=== PATIENT | male | born 1965 ===

== ENCOUNTER 2017-02-17 18:12 | Emergency (ER) | payer MEDICAID, OTHER ==
[2017-02-17 18:29] VITALS: TEMP 97.6
[2017-02-17] MEDS ORDERED: Naloxone 0.4 mg/ml Inj (Adult) IV ONE (18:38)
[2017-02-17] MEDS ORDERED: Naloxone 0.4 mg/ml Inj (Adult) ONE (18:44)
[2017-02-17 18:49] LABS: BASO % 0.5 % (0.0-2.0); EOS # 0.1 K/uL (0.0-0.7); EOS % 1.6 % (0.0-4.0); HEMATOCRIT 36.9 % (35.0-51.0); LYMPH # 1.1 K/uL (1.0-4.3); LYMPH % 17.7 % (20.0-40.0); MEAN CORPUSCULAR HEMOGLOBIN 27.8 pg (27.0-31.0); MEAN CORPUSCULAR HGB CONC 32.6 g/dL (33.0-37.0); MEAN PLATELET VOLUME 8.8 fL (7.2-11.7); MONO # 0.5 K/uL (0.0-0.8); MONO % 7.7 % (0.0-10.0); RED CELL DISTRIBUTION WIDTH 16.7 % (11.5-14.5); WHITE BLOOD COUNT 6.3 K/uL (4.8-10.8)
[2017-02-17 18:54] LABS: CHLORIDE 107 mmol/L (98-107)
[2017-02-17 18:55] LABS: SODIUM 144 mmol/L (132-148)
[2017-02-17 18:56] LABS: POTASSIUM 5.1 mmol/L (3.6-5.2)
[2017-02-17 18:58] LABS: ALB/GLOB RATIO 0.8 (1.0-2.1); ALKALINE PHOSPHATASE 137 U/L (38-126); ALT/SGPT 80 U/L (21-72); AST/SGOT 124 U/L (17-59); BILIRUBIN,TOTAL 2.2 mg/dL (0.2-1.3); BLOOD UREA NITROGEN 13 mg/dL (9-20); CARBON DIOXIDE 22 mmol/L (22-30); GFR AFRICAN-AMERICAN > 60; TOTAL PROTEIN 7.3 g/dL (6.3-8.3)
[2017-02-17 18:59] LABS: ALCOHOL SERUM 171 mg/dl (0-10); CALCIUM 8.3 mg/dl (8.6-10.4); GLUCOSE,RANDOM 118 mg/dL (75-110)
[2017-02-17 19:18] LABS: MEAN CELL VOLUME 85.2 fL (80.0-94.0)
--- NOTE | 2017-02-17 19:31 | C.PDOC ---
History Of Present Illness 51 year old patient is brought to the ED by ambulance for overdosing on heroin in the field. Patient was given Narcan and his symptoms are improving. Patient denies suicidal ideation, homicidal ideation, or any other complaints at this time. Time Seen by Provider: 02/17/17 18:38 Chief Complaint (Nursing): Substance Abuse History Per: Patient, EMS History/Exam Limitations: other Onset/Duration Of Symptoms: Mins (prior to arrival) Current Symptoms Are (Timing): Still Present Suicide/Self Injury Attempted (Context): None Modifying Factor(s): Other (heroin) Severity: None Pain Scale Rating Of: 0 Recent travel outside of the [place]: No Additional History Per: EMS Past Medical History Reviewed: Historical Data, Nursing Documentation, Vital Signs Vital Signs: Last Vital Signs Temp 97.6 F 02/17/17 18:24 Pulse 104 H 02/17/17 20:00 Resp 14 02/17/17 20:00 BP 125/86 02/17/17 20:00 Pulse Ox 96 02/17/17 20:28 - Medical History PMH: Bipolar Disorder, Depression, Kidney Stones, Schizophrenia - [facility] Procedures DETOXIFICATION SERVICES FOR SUBSTANCE ABUSE TREATMENT (01/25/16) INJECT/INFUSE NEC (02/20/14) Family History: States: Unknown Family Hx - Social History Hx Tobacco Use: Yes Hx Alcohol Use: Yes Hx Substance Use: Yes (Snorts Heroin) - Immunization History Hx Influenza Vaccination: No Review Of Systems Except As Marked, All Systems Reviewed And Found Negative. Psych: Positive for: Other (overdose). Negative for: Suicidal ideation Physical Exam - Physical Exam Appears: Non-toxic, No Acute Distress, Other (lethargic, combative) Skin: Warm, Dry Head: Atraumatic, Normacephalic Eye(s): bilateral: Other (pinpoint pupils) Oral Mucosa: Moist Neck: Normal ROM, Supple Chest: Symmetrical Cardiovascular: Rhythm Regular Respiratory: No Accessory Muscle Use Gastrointestinal/Abdominal: Soft, No Tenderness Back: Normal Inspection Extremity: Normal ROM, Other (-like left hand) Gait: Steady ED Course And Treatment - Laboratory Results Result Diagrams: 02/17/17 18:43 02/17/17 18:43 Lab Interpretation: Abnormal (ETOH 171 H) ECG: Interpreted By Me, Viewed By Me ECG Rhythm: Sinus Tachycardia Rate From EC (bpm) O2 Sat by Pulse Oximetry: 96 (room air) Pulse Ox Interpretation: Normal - Radiology CXR: Interpreted by Me CXR Interpretation: Yes: No Acute Disease Progress Note: Plan: -EKG. -Labs. -Chest x-ray. -Narcan. Pinpoint pupils resolved with Narcan. 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 at d/c pt unwilling or unable to provide urine sample. Disposition Doctor Will See Patient In The: Office Counseled Patient/Family Regarding: Studies Performed, Diagnosis - Disposition Disposition: HOME/ ROUTINE Disposition Time: 20:34 Condition: GOOD - Clinical Impression Clinical Impression: Alcohol abuse, Opiate abuse, episodic - Scribe Statement The provider has reviewed the documentation as recorded by the Scribe Dania Cates Provider Attestation: All medical record entries made by the Ladiibmacario were at my direction and personally dictated by me. I have reviewed the chart and agree that the record accurately reflects my personal performance of the history, physical exam, medical decision making, and the department course for this patient. I have also personally directed, reviewed, and agree with the discharge instructions and disposition.
[2017-02-17] MEDS ORDERED: Sodium Chloride 0.9% 1,000 ML IV ONE (20:11)
[2017-02-17] MEDS ORDERED: Sodium Chloride 0.9% 1,000 ML ONE (20:12)
[2017-02-17 20:19] VITALS: O2SAT 96
[2017-02-17 20:50] VITALS: BP 136/86; PULSE 105; RESP 18
--- NOTE | 2017-02-18 08:24 | RAD ---
PROCEDURE: CHEST RADIOGRAPH, 1 VIEW portable semi erect study 19:03. HISTORY: SOB COMPARISON: 02/25/2016. FINDINGS: LUNGS: Pulmonary vascular congestion without focal infiltrates. PLEURA: No pneumothorax or pleural fluid seen. CARDIOVASCULAR: Cardiomegaly/mild CHF. OSSEOUS STRUCTURES: No significant abnormalities. VISUALIZED UPPER ABDOMEN: Normal. OTHER FINDINGS: None. IMPRESSION: Acute CHF a new finding compared to the prior study.
--- NOTE | 2017-02-24 13:37 | CARD ---
APPROVED REPORT EKG Measurement Heart [id number] 130P30 [id number] <Conclusion> Sinus tachycardia Possible Anterior infarct, age undetermined Abnormal ECG
== END 2017-02-17 21:08 | disposition home or self-care (01) ==
LOC: C.ER 18:12
DX: F11.10 Opioid abuse, uncomplicated (principal); F10.10 Alcohol abuse, uncomplicated; Y90.6 Blood alcohol level of 120-199 mg/100 ml
CPT/HCPCS: 71010; 80053; 80320; 84484; 85025; 96360; 99285; J2310; J7040

== ENCOUNTER 2017-02-21 10:34 | Emergency (ER) | payer MEDICAID, OTHER ==
--- NOTE | 2017-02-21 12:12 | C.PDOC ---
History Of Present Illness 51 y/o male presents to the ED with complains of sore throat. Pt was found unresponsive by EMS in the street, given narcan and patient woke up. Pt denies drug use. Pt seen 2 days ago with similar story; seen yesterday at [facility] for sore throat, strep test negative. Pt also reports SOB, nausea and vomiting earlier, none now. Denies headache, chest pain or any other complaints. Chief Complaint (Nursing): Substance Abuse History Per: Patient History/Exam Limitations: no limitations Onset/Duration Of Symptoms: Days Current Symptoms Are (Timing): Still Present Severity: Mild Involuntary Hold By: None Recent travel outside of the [place]: No Past Medical History Reviewed: Historical Data, Nursing Documentation, Vital Signs Vital Signs: Last Vital Signs Temp 98.1 F 02/21/17 14:31 Pulse 92 H 02/21/17 14:31 Resp 18 02/21/17 14:31 BP 125/74 02/21/17 14:31 Pulse Ox 96 02/21/17 15:11 - Medical History PMH: Bipolar Disorder, Depression, Kidney Stones, Chronic Kidney Disease, Schizophrenia - [facility] Procedures DETOXIFICATION SERVICES FOR SUBSTANCE ABUSE TREATMENT (01/25/16) INJECT/INFUSE NEC (02/20/14) Family History: States: Unknown Family Hx - Social History Hx Tobacco Use: Yes Hx Alcohol Use: Yes Hx Substance Use: Yes - Immunization History Hx Tetanus Toxoid Vaccination: No Hx Influenza Vaccination: No Hx Pneumococcal Vaccination: No Review Of Systems Except As Marked, All Systems Reviewed And Found Negative. Constitutional: Negative for: Fever ENT: Positive for: Throat Pain Cardiovascular: Negative for: Chest Pain Respiratory: Positive for: Shortness of Breath (resolved) Gastrointestinal: Positive for: Nausea, Vomiting (resolved) Neurological: Negative for: Headache Physical Exam - Physical Exam Appears: Non-toxic, No Acute Distress Skin: Warm, Dry, No Rash Head: Atraumatic, Normacephalic Oral Mucosa: Moist Throat: Normal, No Erythema Neck: Normal, Normal ROM, Supple Chest: Symmetrical, No Tenderness Cardiovascular: Rhythm Regular, No Murmur Respiratory: Normal Breath Sounds, No Rales, No Rhonchi, No Wheezing Gastrointestinal/Abdominal: Bowel Sounds, Soft, No Tenderness, Other (obese) Extremity: Other (Left upper extremity deformity) Extremity: Bilateral: Atraumatic Neurological/Psych: Oriented x3, Normal Speech ED Course And Treatment - Laboratory Results Result Diagrams: 02/21/17 12:40 02/21/17 12:40 O2 Sat by Pulse Oximetry: 96 (room air) Pulse Ox Interpretation: Normal Medical Decision Making Medical Decision Making: Patient awake, alert, asking for food. Disposition Counseled Patient/Family Regarding: Studies Performed, Diagnosis, Need For Followup - Disposition Disposition: HOME/ ROUTINE Disposition Time: 17:14 Condition: IMPROVED Instructions: Opioid Dependence (ED) Forms: Gen Discharge Inst Algerian - POA Present On Arrival: None - Clinical Impression Clinical Impression: Drug dependence - Scribe Statement The provider has reviewed the documentation as recorded by the Delia Banks Provider Attestation: All medical record entries made by the Delia were at my direction and personally dictated by me. I have reviewed the chart and agree that the record accurately reflects my personal performance of the history, physical exam, medical decision making, and the department course for this patient. I have also personally directed, reviewed, and agree with the discharge instructions and disposition.
--- NOTE | 2017-02-21 12:34 | RAD ---
HISTORY: Detox/Psy COMPARISON: Chest x-ray performed 02/17/17 TECHNIQUE: Chest, one view. FINDINGS: Examination limited by habitus and hypoinflation. LUNGS: Mild pulmonary venous congestion. Please note that chest x-ray has limited sensitivity for the detection of pulmonary masses. PLEURA: No significant pleural effusion identified. No definite pneumothorax . CARDIOVASCULAR: Borderline cardiomegaly. OSSEOUS STRUCTURES: Degenerative changes. VISUALIZED UPPER ABDOMEN: Unremarkable. OTHER FINDINGS: None. IMPRESSION: Mild pulmonary venous congestion . Borderline cardiomegaly.
[2017-02-21 12:45] LABS: BASO % 0.2 % (0.0-2.0); EOS % 0.1 % (0.0-4.0); HEMATOCRIT 35.4 % (35.0-51.0); LYMPH # 0.8 K/uL (1.0-4.3); MEAN CELL VOLUME 85.8 fL (80.0-94.0); MEAN CORPUSCULAR HEMOGLOBIN 27.5 pg (27.0-31.0); MEAN PLATELET VOLUME 8.3 fL (7.2-11.7); MONO # 1.2 K/uL (0.0-0.8); MONO % 8.7 % (0.0-10.0); NRBC % 0.1 % (0.0-2.0); PLATELET COUNT 74 K/uL (130-400); RED CELL DISTRIBUTION WIDTH 16.6 % (11.5-14.5); WHITE BLOOD COUNT 13.6 K/uL (4.8-10.8)
[2017-02-21 12:55] LABS: CHLORIDE 100 mmol/L (98-107); POTASSIUM 5.5 mmol/L (3.6-5.2); SODIUM 133 mmol/L (132-148)
[2017-02-21 12:57] LABS: GFR AFRICAN-AMERICAN 55
[2017-02-21 12:58] LABS: ALB/GLOB RATIO 0.8 (1.0-2.1); ALKALINE PHOSPHATASE 122 U/L (38-126); ALT/SGPT 105 U/L (21-72); AST/SGOT 178 U/L (17-59); BILIRUBIN,TOTAL 2.5 mg/dL (0.2-1.3); BLOOD UREA NITROGEN 29 mg/dL (9-20); CALCIUM 7.9 mg/dl (8.6-10.4); CARBON DIOXIDE 26 mmol/L (22-30); GLUCOSE,RANDOM 120 mg/dL (75-110); TOTAL PROTEIN 7.3 g/dL (6.3-8.3)
[2017-02-21 12:59] LABS: ALCOHOL SERUM < 10 mg/dl (0-10)
[2017-02-21 13:14] LABS: NEUTROPHIL 89 % (50-75); TOTAL CELLS COUNTED 100
[2017-02-21 14:33] VITALS: RESP 18
[2017-02-21 15:01] LABS: RBC URINE 1 /hpf (0-3); URINE BACTERIA RARE (<OCC); URINE BILIRUBIN NEGATIVE (NEGATIVE); URINE BLOOD NEGATIVE (NEGATIVE); URINE COLOR Amber (YELLOW); URINE GLUCOSE (UA) NORMAL (Normal); URINE KETONE TRACE mg/dL (NEGATIVE); URINE LEUKOCYTE ESTERASE NEG Leu/uL (Negative); URINE PROTEIN 1+ mg/dL (NEGATIVE); WBC URINE 1 /hpf (0-5)
[2017-02-21 18:14] VITALS: BP 126/72; PULSE 88; TEMP 98; O2SAT 98
--- NOTE | 2017-02-24 13:01 | CARD ---
APPROVED REPORT EKG Measurement Heart [id number] 140P17 [id number] <Conclusion> Normal sinus rhythm Normal ECG
== END 2017-02-21 17:30 | disposition home or self-care (01) ==
LOC: C.ER 10:34
DX: F19.20 Other psychoactive substance dependence, uncomplicated (principal)

== ENCOUNTER 2017-02-26 21:18 | Emergency (ER) | payer MEDICAID ==
--- NOTE | 2017-02-26 22:32 | C.PDOC ---
History Of Present Illness COUGH, SORE THROAT, LOST VOICE X 3 WEEKS. NO FEVER. MULT PRIOR ER VISITS FOR SAME. HO DRUG OVERDOSE. DENIES OTHER ASSOC SX EXAM +LARYNGITIS NO ACUTE INTOX LUNGS BRONCHIAL SOUNDS NO RETRACTION MDM PT REQUESTING NARCOTIC DETOX. LAST USE EXTRUDER. NO BED AVAIL. OUTPT INFO GIVEN Time Seen by Provider: 02/26/17 22:06 Chief Complaint (Nursing): Cough, Cold, Congestion History Per: Patient History/Exam Limitations: no limitations Onset/Duration Of Symptoms: Other (3 WEEKS) Current Symptoms Are (Timing): Still Present Location Of Pain: Throat Sick Contacts (Context): None Associated Symptoms: Sore Throat, Cough, Other (LOST VOICE). denies: Fever, Chills, Neck Pain, Vomiting Ear Symptoms: Bilateral: None Recent travel outside of the [place]: No Past Medical History Reviewed: Historical Data, Nursing Documentation, Vital Signs Vital Signs: Last Vital Signs Temp 98.5 F 02/26/17 22:41 Pulse 98 H 02/26/17 22:41 Resp 20 02/26/17 22:41 BP 130/74 02/26/17 22:41 Pulse Ox 95 02/26/17 22:41 - Medical History PMH: Bipolar Disorder, Depression, Kidney Stones, Chronic Kidney Disease, Schizophrenia - [facility] Procedures DETOXIFICATION SERVICES FOR SUBSTANCE ABUSE TREATMENT (01/25/16) INJECT/INFUSE NEC (02/20/14) Family History: States: Unknown Family Hx - Social History Hx Tobacco Use: Yes Hx Alcohol Use: Yes Hx Substance Use: Yes - Immunization History Hx Tetanus Toxoid Vaccination: No Hx Influenza Vaccination: No Hx Pneumococcal Vaccination: No Review Of Systems Except As Marked, All Systems Reviewed And Found Negative. Constitutional: Negative for: Fever, Chills ENT: Positive for: Throat Pain, Other (LOST VOICE). Negative for: Nose Discharge, Nose Congestion Cardiovascular: Negative for: Chest Pain Respiratory: Positive for: Cough. Negative for: Shortness of Breath Gastrointestinal: Negative for: Nausea, Vomiting Skin: Negative for: Rash Neurological: Negative for: Headache, Dizziness Physical Exam - Physical Exam Appears: Non-toxic, Other (+LARYNGITIS, NO ACUTE INTOX) Skin: Warm, Dry, No Rash Head: Atraumatic, Normacephalic Eye(s): bilateral: Normal Inspection, PERRL, EOMI Ear(s): Bilateral: Normal Oral Mucosa: Moist Throat: Normal, No Erythema, No Exudate Neck: Supple Chest: Symmetrical Cardiovascular: Rhythm Regular, No Murmur Respiratory: No Accessory Muscle Use, No Rales, No Rhonchi, No Wheezing, Other ( (+) BRONCHIAL SOUNDS) Gastrointestinal/Abdominal: Soft, No Tenderness, No Guarding, No Rebound Back: Normal Inspection Extremity: Normal ROM, Capillary Refill (< 2 SEC. ) Neurological/Psych: Oriented x3, Normal Speech, Normal Cognition ED Course And Treatment O2 Sat by Pulse Oximetry: 94 (RA) Pulse Ox Interpretation: Normal - Radiology CXR: Interpreted by Me CXR Interpretation: Yes: Infiltrates Medical Decision Making Medical Decision Making: PT REQUESTING NARCOTIC DETOX. LAST USE EXTRUDER. NO BED AVAIL. OUTPT INFO GIVEN Disposition Counseled Patient/Family Regarding: Studies Performed, Diagnosis, Need For Followup, Rx Given - Disposition Referrals: [facility] [Outside] [facility] [Outside] Disposition: HOME/ ROUTINE Disposition Time: 22:31 Condition: GOOD Prescriptions: Azithromycin [Zithromax] 250 mg PO DAILY #6 tab Instructions: Laryngitis (ED), Narcotic Abuse (ED), Acute Bronchitis (ED) - Clinical Impression Clinical Impression: Chronic sore throat, Laryngitis, Narcotic abuse, Bronchitis - Scribe Statement The provider has reviewed the documentation as recorded by the Delia Wei Provider Scribe Attestation: All medical record entries made by the Scribe were at my direction and personally dictated by me. I have reviewed the chart and agree that the record accurately reflects my personal performance of the history, physical exam, medical decision making, and the department course for this patient. I have also personally directed, reviewed, and agree with the discharge instructions and disposition.
[2017-02-26 22:42] VITALS: BP 130/74; PULSE 98; RESP 20; TEMP 98.5
[2017-02-26 23:57] VITALS: O2SAT 94
--- NOTE | 2017-02-27 09:34 | RAD ---
HISTORY: COUGH FEVER COMPARISON: 02/21/2017 TECHNIQUE: Chest PA and lateral FINDINGS: LUNGS: Probable linear atelectasis right lower lobe. Poor inspiratory effort and low lung volumes with bronchovascular crowding. No infiltrate. PLEURA: No significant pleural effusion identified. No pneumothorax apparent. CARDIOVASCULAR: Normal. OSSEOUS STRUCTURES: No significant abnormalities. VISUALIZED UPPER ABDOMEN: Normal. OTHER FINDINGS: None. IMPRESSION: Right lower lobe subsegmental atelectasis.
== END 2017-02-26 22:41 | disposition home or self-care (01) ==
LOC: C.ER 21:18
DX: J04.0 Acute laryngitis (principal); J31.2 Chronic pharyngitis; J40 Bronchitis, not specified as acute or chronic; F19.10 Other psychoactive substance abuse, uncomplicated

== ENCOUNTER 2017-04-07 04:59 | Emergency (ER) | payer MEDICAID ==
--- NOTE | 2017-04-07 06:10 | C.PDOC ---
History Of Present Illness 52 y/o male presents to ED with c/o bilateral leg swelling. Patient reports past history of leg swelling and that he was given medication during hospital admission 2 weeks ago "which made him pee a lot" and swelling improve. Pt notes that swelling worsened since discharge, with redness. Denies fevers. Notes he has not been taking his chronic medication. Denies trauma. No SOB. Time Seen by Provider: 04/07/17 05:31 Chief Complaint (Nursing): Lower Extremity Problem/Injury History Per: Patient History/Exam Limitations: no limitations Onset/Duration Of Symptoms: Days Current Symptoms Are (Timing): Worse Recent travel outside of the [place]: No Past Medical History Reviewed: Historical Data, Nursing Documentation, Vital Signs Vital Signs: Last Vital Signs Temp 97.9 F 04/07/17 05:01 Pulse 103 H 04/07/17 05:01 Resp 20 04/07/17 05:01 BP 117/70 04/07/17 05:01 Pulse Ox 95 04/07/17 06:10 - Medical History PMH: Asthma, Bipolar Disorder, Depression, Kidney Stones, Chronic Kidney Disease , Schizophrenia - [facility] Procedures DETOXIFICATION SERVICES FOR SUBSTANCE ABUSE TREATMENT (01/25/16) INJECT/INFUSE NEC (02/20/14) INSPECTION OF LARYNX, ENDO (03/23/17) Family History: States: Unknown Family Hx - Social History Hx Tobacco Use: Yes Hx Alcohol Use: Yes (admits to drinking last night) Hx Substance Use: Yes (admits to heroin used last night) - Immunization History Hx Tetanus Toxoid Vaccination: No Hx Influenza Vaccination: No Hx Pneumococcal Vaccination: No Review Of Systems Cardiovascular: Positive for: Edema (bilateral lower extremities). Negative for : Chest Pain, Palpitations Respiratory: Negative for: Cough, Shortness of Breath Gastrointestinal: Negative for: Nausea, Vomiting Musculoskeletal: Positive for: Leg Pain (bilateral) Physical Exam - Physical Exam Appears: Non-toxic, No Acute Distress (sleeping on initial exam) Skin: Warm, Dry Head: Atraumatic, Normacephalic Eye(s): bilateral: Normal Inspection, EOMI Nose: Normal Oral Mucosa: Moist Chest: Symmetrical Cardiovascular: Rhythm Regular Respiratory: No Rales, Rhonchi, No Wheezing Gastrointestinal/Abdominal: Soft, No Tenderness, No Guarding, No Rebound Back: Normal Inspection Extremity: Normal ROM, Pedal Edema (pedal edema R > L, (+) tenderness, (+) erythema ), Deformity (left upper extremity, chronic) Pulses: Left Dorsalis Pedis: Normal, Right Dorsalis Pedis: Normal Neurological/Psych: Oriented x3, Normal Speech, Normal Cognition, Normal Motor, Normal Sensation ED Course And Treatment O2 Sat by Pulse Oximetry: 95 (RA) Pulse Ox Interpretation: Normal Progress Note: Labs ordered and reviewed. Previous visits reviewed. Doppler from 03/23/17 negative. Case endorsed to Fernando Bowman pending labs and dispostion. Disposition - Disposition Disposition Time: 06:44 Condition: STABLE - Clinical Impression Clinical Impression: Pedal edema - PA / HOUSING CASE MANAGER / Resident Statement MD/DO has reviewed & agrees with the documentation as recorded. - Scribe Statement The provider has reviewed the documentation as recorded by the Scribmacario Wei All medical record entries made by the Ladiibmacario were at my direction and personally dictated by me. I have reviewed the chart and agree that the record accurately reflects my personal performance of the history, physical exam, medical decision making, and the department course for this patient. I have also personally directed, reviewed, and agree with the discharge instructions and disposition.
[2017-04-07 06:54] LABS: BASO # 0.1 K/uL (0.0-0.2); BASO % 1.3 % (0.0-2.0); EOS # 0.1 K/uL (0.0-0.7); HEMATOCRIT 30.8 % (35.0-51.0); LYMPH # 0.8 K/uL (1.0-4.3); LYMPH % 18.9 % (20.0-40.0); MEAN CORPUSCULAR HEMOGLOBIN 26.9 pg (27.0-31.0); MEAN PLATELET VOLUME 8.6 fL (7.2-11.7); MONO # 0.4 K/uL (0.0-0.8); MONO % 8.8 % (0.0-10.0); NRBC % 0.2 % (0.0-2.0); RED CELL DISTRIBUTION WIDTH 18.2 % (11.5-14.5); WHITE BLOOD COUNT 4.4 K/uL (4.8-10.8)
[2017-04-07 06:55] VITALS: TEMP 97.6
[2017-04-07 07:12] VITALS: BP 111/70; PULSE 91; RESP 18; O2SAT 94
[2017-04-07 07:21] LABS: SODIUM 141 mmol/L (132-148)
[2017-04-07 07:23] LABS: CARBON DIOXIDE 21 mmol/L (22-30); GFR AFRICAN-AMERICAN > 60; TOTAL PROTEIN 6.6 g/dL (6.3-8.3)
[2017-04-07 07:24] LABS: BLOOD UREA NITROGEN 16 mg/dL (9-20); CALCIUM 7.8 mg/dl (8.6-10.4); GLUCOSE,RANDOM 79 mg/dL (75-110)
[2017-04-07 07:32] LABS: CHLORIDE 111 mmol/L (98-107)
[2017-04-07 07:33] LABS: POTASSIUM 3.9 mmol/L (3.6-5.2)
[2017-04-07 07:35] LABS: ALB/GLOB RATIO 0.6 (1.0-2.1); ALKALINE PHOSPHATASE 127 U/L (38-126); ALT/SGPT 55 U/L (21-72); AST/SGOT 114 U/L (17-59); BILIRUBIN,TOTAL 1.5 mg/dL (0.2-1.3)
== END 2017-04-07 08:54 | disposition home or self-care (01) ==
LOC: C.ER 04:59
DX: R60.9 Edema, unspecified (principal); N18.9 Chronic kidney disease, unspecified
CPT/HCPCS: 80053; 83880; 85025; 96374; 99285; J1940

== ENCOUNTER 2017-04-15 04:08 | Emergency (ER) | payer MEDICAID ==
[2017-04-15 04:18] VITALS: BP 111/66; TEMP 98.1
[2017-04-15 04:33] VITALS: RESP 24; O2SAT 97
[2017-04-15 04:35] VITALS: PULSE 90
--- NOTE | 2017-04-15 04:53 | C.PDOC ---
History Of Present Illness 52 year old male presents to the ED looking for a place to stay. Patient is well known to this ED, he is a homeless alcoholic and heroine abuser with chronic right leg pain. He admits to heroin and alcohol abuse today. Patient denies any physical complaints at this time. Time Seen by Provider: 04/15/17 04:36 Chief Complaint (Nursing): Shortness Of Breath History Per: Patient History/Exam Limitations: no limitations Onset/Duration Of Symptoms: Hrs Current Symptoms Are (Timing): Still Present Severity: None Pain Scale Rating Of: 0 Associated Symptoms: denies: Fever, Chills Reports Recently: Seen In ED Recent travel outside of the [place]: No Additional History Per: Prior Records Past Medical History Reviewed: Historical Data, Nursing Documentation, Vital Signs Vital Signs: Last Vital Signs Temp 98.1 F 04/15/17 04:15 Pulse 90 04/15/17 04:33 Resp 24 04/15/17 04:29 BP 111/66 04/15/17 04:33 Pulse Ox 97 04/15/17 04:53 - Medical History PMH: Asthma, Bipolar Disorder, COPD, Depression, Hepatitis ((+)Hep C), Kidney Stones, Chronic Kidney Disease, Schizophrenia - [facility] Procedures DETOXIFICATION SERVICES FOR SUBSTANCE ABUSE TREATMENT (01/25/16) INJECT/INFUSE NEC (02/20/14) INSPECTION OF LARYNX, ENDO (03/23/17) Family History: States: Unknown Family Hx - Social History Hx Tobacco Use: Yes Hx Alcohol Use: Yes (admits to drinking last night) Hx Substance Use: Yes (admits to heroin used last night) - Immunization History Hx Tetanus Toxoid Vaccination: No Hx Influenza Vaccination: No Hx Pneumococcal Vaccination: No Review Of Systems Constitutional: Negative for: Fever, Chills Cardiovascular: Negative for: Chest Pain, Palpitations Respiratory: Negative for: Cough, Shortness of Breath Gastrointestinal: Negative for: Nausea, Vomiting, Abdominal Pain, Diarrhea Musculoskeletal: Positive for: Leg Pain (chronic right leg pain ) Psych: Negative for: Suicidal ideation Physical Exam - Physical Exam Appears: Non-toxic, No Acute Distress, Other (Patient is well known to this doctor from prior evaluations, no significant changes. ) Skin: Warm, Dry Head: Atraumatic Eye(s): bilateral: Other (pin-point pupils ) Oral Mucosa: Moist Neck: Supple Chest: Symmetrical, No Deformity Cardiovascular: Rhythm Regular Respiratory: No Rales, No Rhonchi, No Stridor, No Wheezing Gastrointestinal/Abdominal: Soft, No Tenderness, No Distention, No Guarding, No Rebound Extremity: Normal ROM, No Tenderness, Other (mild erythema to lower extremities bilaterally ) ED Course And Treatment ECG: Interpreted By Me ECG Rhythm: Sinus Rhythm ECG Interpretation: Normal Rate From EC O2 Sat by Pulse Oximetry: 97 (room air ) Pulse Ox Interpretation: Normal Medical Decision Making Medical Decision Making: homeless alcoholic, heroine abuser, malingering baseline lower extremity erythema of legs c/w scratching, and not CHF/Cellulitis Disposition Doctor Will See Patient In The: Office Counseled Patient/Family Regarding: Studies Performed, Diagnosis - Disposition Referrals: [facility] [Outside] [facility] [Outside] [facility] [Outside] Disposition: HOME/ ROUTINE Disposition Time: 04:52 Condition: GOOD Instructions: Polysubstance Abuse (ED) - Clinical Impression Clinical Impression: Heroin abuse, Alcohol abuse, Homeless - Scribe Statement The provider has reviewed the documentation as recorded by the Scribmacario Tao All medical record entries made by the Scribe were at my direction and personally dictated by me. I have reviewed the chart and agree that the record accurately reflects my personal performance of the history, physical exam, medical decision making, and the department course for this patient. I have also personally directed, reviewed, and agree with the discharge instructions and disposition.
--- NOTE | 2017-04-17 17:38 | CARD ---
APPROVED REPORT EKG Measurement Heart [id number] 154P50 [id number] <Conclusion> Normal sinus rhythm Normal ECG
== END 2017-04-15 05:05 | disposition home or self-care (01) ==
LOC: C.ER 04:08
DX: F10.10 Alcohol abuse, uncomplicated (principal); F11.10 Opioid abuse, uncomplicated; Y90.9 Presence of alcohol in blood, level not specified; Z59.0 Homelessness

== ENCOUNTER 2017-05-14 23:51 | Emergency (ER) | payer MEDICAID, OTHER ==
--- NOTE | 2017-05-15 00:32 | C.PDOC ---
History Of Present Illness Patient presents to the ER requesting a place to stay the night. Patient was seen at [facility] earlier today for hematuria; patient had a CT done that was negative and was put on antibiotics. Denies any physical complaints at this time. Time Seen by Provider: 05/15/17 00:32 Chief Complaint (Nursing): Male Genitourinary History Per: Patient History/Exam Limitations: no limitations Onset/Duration Of Symptoms: Hrs Current Symptoms Are (Timing): Still Present Severity: None Pain Scale Rating Of: 0 Associated Symptoms: denies: Fever, Chills, Nausea, Vomiting Alleviating Factors: None Recent travel outside of the [place]: No Past Medical History Reviewed: Historical Data, Nursing Documentation, Vital Signs Vital Signs: Last Vital Signs Temp 97.9 F 05/15/17 00:00 Pulse 75 05/15/17 00:00 Resp 20 05/15/17 00:00 BP 123/78 05/15/17 00:00 Pulse Ox 97 05/15/17 01:30 - Medical History PMH: Asthma, Bipolar Disorder, COPD, Depression, Hepatitis ((+)Hep C), Chronic Kidney Disease, Schizophrenia Surgical History: No Surg Hx - [facility] Procedures DETOXIFICATION SERVICES FOR SUBSTANCE ABUSE TREATMENT (01/25/16) GROUP PSYCHOTHERAPY (04/17/17) INDIV PSYCHOTHERAPY FOR SUBSTANCE ABUSE TREATMENT, SUPPORT (04/17/17) INJECT/INFUSE NEC (02/20/14) INSPECTION OF LARYNX, ENDO (03/23/17) Family History: States: Unknown Family Hx - Social History Hx Tobacco Use: Yes Hx Alcohol Use: Yes Hx Substance Use: Yes - Immunization History Hx Tetanus Toxoid Vaccination: No Hx Influenza Vaccination: No Hx Pneumococcal Vaccination: No Review Of Systems Constitutional: Negative for: Fever, Chills Gastrointestinal: Negative for: Nausea, Vomiting, Diarrhea Physical Exam - Physical Exam Appears: Non-toxic Skin: Warm, Dry Oral Mucosa: Moist Chest: Symmetrical, No Tenderness Cardiovascular: Rhythm Regular, No Murmur Respiratory: No Rales, No Rhonchi, No Wheezing Gastrointestinal/Abdominal: Soft, No Tenderness Neurological/Psych: Oriented x3 ED Course And Treatment O2 Sat by Pulse Oximetry: 97 (Room air) Pulse Ox Interpretation: Normal Progress Note: Motrin and macrobid administered. Reevaluation Time: 05:22 Reassessment Condition: Improved ED OBSERVATION Discharge: Yes Date of observation admission: 05/15/17 Time of observation admission: 00:30 - Observation admission statement Patient is being placed in observation because:: Acute ETOH intoxication - Goals of Observation Goals of observation are:: Sobriety Disposition Counseled Patient/Family Regarding: Studies Performed, Diagnosis, Need For Followup - Disposition Referrals: Montana Bear MD [Staff Provider] - [facility] [Outside] Disposition: HOME/ ROUTINE Disposition Time: 00:32 Condition: FAIR Instructions: Acute Hematuria (DC) Forms: [employer] (Qatari) - Clinical Impression Clinical Impression: Hematuria - Scribe Statement The provider has reviewed the documentation as recorded by the Scribe Farhat Hurtado All medical record entries made by the Scribe were at my direction and personally dictated by me. I have reviewed the chart and agree that the record accurately reflects my personal performance of the history, physical exam, medical decision making, and the department course for this patient. I have also personally directed, reviewed, and agree with the discharge instructions and disposition.
[2017-05-15 06:47] VITALS: BP 120/75; PULSE 64; RESP 16; TEMP 97.8; O2SAT 98
== END 2017-05-15 06:00 | disposition home or self-care (01) ==
LOC: C.ER 23:51
DX: R31.9 Hematuria, unspecified (principal)

== ENCOUNTER 2017-06-02 14:34 | Observation (INO) | payer MEDICAID, OTHER ==
[2017-06-02 14:43] VITALS: BMI 26.9
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
[2017-06-02 17:02] VITALS: RESP 16
[2017-06-02 19:03] VITALS: BP 96/63; PULSE 78; TEMP 97.9; O2SAT 98
== END 2017-06-02 18:41 | disposition home or self-care (01) ==
LOC: C.ER 14:34 → C.9OBSV 15:22
PROVIDERS: ADMIT Student in an Organized Health Care Education/Training Program; ATTEND Student in an Organized Health Care Education/Training Program
DX: F10.10 Alcohol abuse, uncomplicated (principal); F20.9 Schizophrenia, unspecified; J44.9 Chronic obstructive pulmonary disease, unspecified; Z87.891 Personal history of nicotine dependence
CPT/HCPCS: 99283; G0378

== ENCOUNTER 2017-06-02 20:15 | Emergency (ER) | payer MEDICAID ==
[2017-06-02 20:16] VITALS: BMI 26.9
[2017-06-02 20:37] VITALS: TEMP 97.9
[2017-06-03] MEDS ORDERED: Phytonadione 10 mg/ml Inj (Adult) SC STA (00:28)
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
[2017-06-03 01:30] VITALS: BP 136/75; PULSE 79; RESP 18; O2SAT 99
--- NOTE | 2017-06-03 08:31 | RAD ---
PROCEDURE: Radiographs of the Chest and Left Ribs. HISTORY: injury / pain COMPARISON: Chest x-ray performed 02/26/17 TECHNIQUE: Frontal radiograph of the chest and multiple oblique radiographs of the left ribs were obtained. FINDINGS: LEFT RIBS: No acute displaced fracture. LUNGS: No focal consolidation. Please note that chest x-ray has limited sensitivity for the detection of pulmonary masses. PLEURA: No significant pleural effusion. No definite pneumothorax. CARDIOVASCULAR: Heart size appears top normal. OTHER FINDINGS: None. IMPRESSION: Unremarkable radiographs of the chest and left ribs. No appreciable displaced left rib fracture.
== END 2017-06-03 01:30 | disposition home or self-care (01) ==
LOC: C.ER 20:15
DX: R07.89 Other chest pain (principal)

== ENCOUNTER 2017-07-12 03:33 | Emergency (ER) | payer MEDICAID ==
[2017-07-12 03:34] VITALS: BMI 27.3
[2017-07-12 03:51] VITALS: RESP 20
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
[2017-07-12 05:56] VITALS: BP 116/69; PULSE 75; TEMP 98.4
[2017-07-12 06:54] VITALS: O2SAT 97
--- NOTE | 2017-07-12 09:59 | RAD ---
PROCEDURE: Radiographs of the Left Shoulder HISTORY: pain COMPARISON: No prior. FINDINGS: BONES: Normal. No fracture. JOINTS: Normal. Glenohumeral and acromioclavicular joints preserved. No osteoarthritis. SOFT TISSUES: Normal. OTHER FINDINGS: None. IMPRESSION: No evidence of acute pathology at the left shoulder.
--- NOTE | 2017-07-12 15:40 | RAD ---
PROCEDURE: Radiographs of the Chest and Left Ribs. HISTORY: pain s/p fall COMPARISON: Left ribs and chest radiographs performed 06/03/17. TECHNIQUE: Frontal radiograph of the chest and multiple oblique radiographs of the left ribs were obtained. FINDINGS: Examination limited by patient motion/condition. LEFT RIBS: No acute displaced fracture. LUNGS: No focal consolidation. Please note that chest x-ray has limited sensitivity for the detection of pulmonary masses. PLEURA: No significant pleural effusion. No definite pneumothorax. CARDIOVASCULAR: Heart size appears top normal. OTHER FINDINGS: None. IMPRESSION: Limited study. No focal consolidation, significant pleural effusion, or definite pneumothorax identified. No left rib fracture.
== END 2017-07-12 05:56 | disposition home or self-care (01) ==
LOC: C.ER 03:33
DX: S43.402A Unspecified sprain of left shoulder joint, initial encounter (principal); S20.212A Contusion of left front wall of thorax, initial encounter; W18.2XXA Fall in (into) shower or empty bathtub, initial encounter

== ENCOUNTER 2018-12-16 18:48 | Inpatient (IN) | payer MEDICAID, OTHER ==
[2018-12-16 18:52] VITALS: BMI 27.0
--- NOTE | 2018-12-16 19:20 | C.PDOC ---
History Of Present Illness 53 year old male presents to the ED c/o left flank pain radiating to his left groin. Patient reports he has history of kidney stones in the past, states he is having some difficulty urinating and dysuria. 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 Patient denies fever, chills, nausea, vomit, diarrhea, hematuria, rash. Time Seen by Provider: 12/16/18 19:14 Chief Complaint (Nursing): Female Genitourinary History Per: Patient History/Exam Limitations: no limitations Onset/Duration Of Symptoms: Days Current Symptoms Are (Timing): Still Present Associated Symptoms: denies: Depression, Suicidal Thoughts, Suicidal Plan Recent travel outside of the [place]: No Additional History Per: Patient Past Medical History Reviewed: Historical Data, Nursing Documentation, Vital Signs Vital Signs: Last Vital Signs Temp 98.0 F 12/16/18 18:52 Pulse 95 H 12/16/18 18:52 Resp 16 12/16/18 18:52 BP Pulse Ox 98 12/16/18 18:52 - Medical History PMH: Anxiety, Asthma, Bipolar Disorder, COPD, Depression, Hepatitis (+ Hep C), Kidney Stones, Chronic Kidney Disease, Schizophrenia Denies: Diabetes, HIV, HTN, Seizures, Sexually Transmitted Disease Surgical History: No Surg Hx - [facility] Procedures DETOXIFICATION SERVICES FOR SUBSTANCE ABUSE TREATMENT (01/25/16) GROUP PSYCHOTHERAPY (09/21/17) INDIV PSYCHOTHERAPY FOR SUBSTANCE ABUSE TREATMENT, SUPPORT (09/21/17) INDIV PSYCHOTHERAPY FOR SUBSTANCE ABUSE, COGNITIV BEHAVIORAL (09/21/17) INDIV PSYCHOTHERAPY FOR SUBSTANCE ABUSE, MOTIVATION ENHANCE (09/21/17) INDIVIDUAL PSYCHOTHERAPY, COGNITIVE-BEHAVIORAL (07/25/17) INJECT/INFUSE NEC (02/20/14) INSPECTION OF LARYNX, ENDO (03/23/17) Family History: States: Unknown Family Hx - Social History Hx Tobacco Use: Yes Hx Alcohol Use: No Hx Substance Use: Yes - Immunization History Hx Tetanus Toxoid Vaccination: No Hx Influenza Vaccination: No Hx Pneumococcal Vaccination: No Review Of Systems Constitutional: Negative for: Fever, Chills Cardiovascular: Negative for: Chest Pain Respiratory: Negative for: Shortness of Breath Gastrointestinal: Positive for: Abdominal Pain. Negative for: Nausea, Vomiting, Diarrhea Genitourinary: Positive for: Dysuria Musculoskeletal: Positive for: Back Pain Skin: Negative for: Rash Neurological: Negative for: Weakness, Numbness Physical Exam - Physical Exam Appears: Non-toxic, No Acute Distress Skin: Warm, Dry Head: Normacephalic Eye(s): bilateral: Normal Inspection Neck: Supple Chest: Symmetrical Cardiovascular: Rhythm Regular Respiratory: No Rales, No Rhonchi, No Wheezing Gastrointestinal/Abdominal: Soft, No Tenderness, No Guarding, No Rebound Back: CVA Tenderness (left) Extremity: Left: Other (syndactyly left arm), Bilateral: Atraumatic, Normal Color And Temperature, Normal ROM Neurological/Psych: Oriented x3, Normal Speech, Normal Cognition, Other (non focal) Gait: Steady ED Course And Treatment - Laboratory Results Result Diagrams: 12/16/18 19:54 12/16/18 19:54 O2 Sat by Pulse Oximetry: 98 (ON RA) Pulse Ox Interpretation: Normal - CT Scan/US Ct abd/pelvis Other Rad Studies (CT/US): Read By Radiologist, Radiology Report Reviewed CT/US Interpretation: EXAM: CT Abdomen and Pelvis Without IV contrast. CLINICAL HISTORY: Left flank pain, r/o kidney stone. TECHNIQUE: Axial computed tomography images of the abdomen and pelvis without intravenous contrast. CONTRAST: No IV contrast. COMPARISON: None provided. FINDINGS: LUNG BASES: The lung bases appear clear. No pleural effusions are seen. LIVER: The liver is small in size and demonstrates nodular surface contours compatible with advanced cirrhosis. GALLBLADDER AND BILE DUCTS: The gallbladder appears normal in size and configuration. Cholelithiasis is seen. No biliary ductal dilatation is evident. PANCREAS: Unremarkable. SPLEEN: Unremarkable. ADRENAL GLANDS: Unremarkable. KIDNEYS, URETERS, AND BLADDER: Both kidneys are normal in size and position. A couple of punctate non-obstructing calculi are seen in the anterior mid and posterior mid-lower right renal pole. Additionally, a punctate non--obstructing calculus is seen in the lateral mid left renal pole.There is no hydronephrosis or hydroureter. No urinary calculi are seen. The urinary bladder is normal in size and configuration. STOMACH AND BOWEL: Mucosal thickening is seen in the spencer of the lower esophagus at the esophagogastric junction. This could be compatible with reflux esophagitis. Unremarkable appearance of the stomach and bowel. No evidence of bowel obstructi on. No evidence suggesting enteritis or colitis. APPENDIX: No evidence of acute appendicitis on CT examination. PERITONEUM: No free fluid. No free air. LYMPH NODES: No lymphadenopathy is evident. REPRODUCTIVE: A few benign appearing calcifications are noted in the prostatic right central zone. Otherwise, unremarkable as visualized. VASCULATURE: No evidence of abdominal aortic aneurysm. Minor atherosclerotic vascular plaquing is present. BONES: No aggressive appearing osseous lesion. No acute osseous pathology evident. IMPRESSION: 1. Tiny bilateral punctate non--obstructing renal calculi as described above. 2. Evidence of advanced cirrhosis. 3. Mucosal wall thickening of the lower esophagus at the EG junction may be compatible with reflux esophagitis. 4. Cholelithiasis is identified. 5. Minor atherosclerotic vascular plaquing. . Electronically signed on Dec 16, 2018 10:54:24 PM EST by: Brandon Jackman M.D., SANIA Certified By ABR & CBCCT. Fellowship Trained MRI and CT Specialist. Progress Note: Plan: - Labs. - UA. - IV fluids. - Toradol 30 mg IVP. - Crisis eval Disposition Discussed With Dr.: Teddy Erickson Comment[facility] 12:12 AM Doctor Will See Patient In The: Hospital Counseled Patient/Family Regarding: Studies Performed, Diagnosis - Disposition Disposition: HOSPITALIZED Disposition Time: 19:20 Condition: FAIR Forms: [employer] (Urdu) - Clinical Impression Clinical Impression: Opioid use disorder, Alcohol use disorder - Scribe Statement The provider has reviewed the documentation as recorded by the Scribe Adalberto Rutledge All medical record entries made by the Scribe were at my direction and personally dictated by me. I have reviewed the chart and agree that the record accurately reflects my personal performance of the history, physical exam, medical decision making, and the department course for this patient. I have also personally directed, reviewed, and agree with the discharge instructions and disposition. Decision To Admit - Pt Status Changed To: Hospital Disposition Of: Inpatient - Admit Certification Admit to Inpatient:: After my assessment, the patient will require hospitalization for at least two midnights. This is because of the severity of symptoms shown, intensity of services needed, and/or the medical risk in this patient being treated as an outpatient. - InPatient: Physician Admission Certification: I certify that this patient requires 2 or more midnights of care for the following reason:: After my assessment, the patient will require hospitalization for at least two midnights. This is because of the severity of symptoms shown, intensity of services needed, and/or the medical risk in this patient being treated as an outpatient. - . Bed Request Type: Detox Admitting Physician: Teddy Erickson Patient Diagnosis: Opioid use disorder, Alcohol use disorder
[2018-12-16] MEDS ORDERED: Sodium Chloride 0.9% 2,000 ML IV ONE (19:24)
[2018-12-16 19:58] LABS: BASO % 0.8 % (0.0-2.0); LYMPH # 1.3 K/uL (1.0-4.3); LYMPH % 26.1 % (20.0-40.0); MONO # 0.3 K/uL (0.0-0.8); RED CELL DISTRIBUTION WIDTH 17.8 % (11.5-14.5)
[2018-12-16 20:03] LABS: SQUAMOUS EPITHIAL 2 /hpf (0-5); URINE BACTERIA RARE (<OCC); URINE BILIRUBIN 1+ (NEGATIVE); URINE BLOOD 2+ (NEGATIVE); URINE CLARITY Hazy (Clear); URINE COLOR Amber (YELLOW); URINE GLUCOSE (UA) NORMAL (Normal); URINE LEUKOCYTE ESTERASE NEG Leu/uL (Negative); URINE PROTEIN 2+ mg/dL (NEGATIVE)
[2018-12-16 20:04] LABS: EOS % 0.7 % (0.0-4.0); MEAN CORPUSCULAR HEMOGLOBIN 30.1 pg (27.0-31.0); MEAN CORPUSCULAR HGB CONC 33.1 g/dL (33.0-37.0); MEAN PLATELET VOLUME 9.9 fL (7.2-11.7); NEUT # 3.2 K/uL (1.8-7.0); NEUT % 65.4 % (50.0-75.0); NRBC % 0.3 % (0.0-2.0); RBC 4.26 Mil/uL (4.40-5.90); WHITE BLOOD COUNT 4.9 K/uL (4.8-10.8)
[2018-12-16 20:05] LABS: HEMOGLOBIN 12.8 g/dL (12.0-18.0); MEAN CELL VOLUME 91.1 fL (80.0-94.0)
[2018-12-16 20:10] LABS: ALBUMIN 3.3 g/dL (3.5-5.0); ALT/SGPT 67 U/L (21-72); AST/SGOT 192 U/L (17-59); BLOOD UREA NITROGEN 12 mg/dL (9-20); CALCIUM 8.3 mg/dl (8.6-10.4); GFR NON-AFRICAN AMERICAN > 60
[2018-12-16 20:12] LABS: BARBITURATES, UR NEGATIVE (NEGATIVE); BENZODIAZEPINES, UR NEGATIVE (NEGATIVE); PHENCYCLIDINE, UR NEGATIVE (NEGATIVE)
[2018-12-16 20:19] LABS: OPIATES, UR POSITIVE (NEGATIVE)
[2018-12-16] MEDS ORDERED: LIDOCAINE IV STA (20:21)
[2018-12-16] MEDS ORDERED: SODIUM CHLORIDE 0.9% IV STA (20:21)
--- NOTE | 2018-12-17 00:41 | PCM.BM ---
<Markel Ruiz - Last Filed: 12/17/18 00:38> Treatment Plan Problems - Problems identified on initial assessmt anxiety related to substance use Date Initiated: 12/17/18 Time Initiated: 00:39 Assessment reference: NA Status: Active knowledge deficit:alcohol use Date Initiated: 12/17/18 Time Initiated: 00:40 Assessment reference: NA Status: Active defensive coping Date Initiated: 12/17/18 Time Initiated: 00:40 Assessment reference: NA Status: Active Treatment assets and liabiliti Patient Assests: cooperative, self-reliant, ADL independent, negotiates basic needs Patient Liabilities: substance abuse, medical problems - Milieu Protocol Maintain good personal hygiene: daily Encourage regular showers, daily Remind patient to perform daily oral care, daily Assist patient to perform ADL's Conduct patient checks and document Observation sheet: Q15 minutes Maintain personal safety: every shift Educate patient to report safety concerns to staff, every shift Monitor environment for contraband/sharps Medication safety: Monitor for expected outcome, potential side effects: every shift, Assess barriers to learning: every shift, Assess readiness for medication education: every shift <Rossy Loco - Last Filed: 12/17/18 22:57> - Diagnosis (1) Alcohol use disorder Status: Acute Interventions: 12/17/18 22:57 * Assess 7x/week regarding severity of withdrawal * Educate regarding risks, benefits, side effects and alternatives of medications * Use Motivational Interviewing for abstinence * Use CBT for relapse prevention * Medication management for withdrawal symptoms * Encourage medication assisted treatment * (2) Opioid use disorder Status: Acute Interventions: 12/17/18 22:57 * Assess 7x/week regarding severity of withdrawal * Educate regarding risks, benefits, side effects and alternatives of medications * Use Motivational Interviewing for abstinence * Use CBT for relapse prevention * Medication management for withdrawal symptoms * Encourage medication assisted treatment * <Rahel Dong - Last Filed: 12/19/18 09:30> Family Contact Family involvement: Famliy/SO not involved - Goals for Treatment Patient goals for treatment: Complete detox and transition to an [id number] IOP. Discharge/Continuing Care - Education Needs Education Needs: Patient Medication, Patient Diagnosis/Disease Process, Patient Coping Skills, Patient Anger Management skills, Patient Placement options, Patient Community resources - Discharge Discharge Criteria: No longer exhibiting s/s of withdrawal, Reduction of target symptoms Discharge to:: Home, With Family - Treatment Team Participation Patient/Family/SO Statement: 12/19/18 09:29 "I wanna move back to [place] so I can be around my family and away from this area. This area is my downfall..." Discussed with Family/SO: No Was Patient/Family/SO present at Treatment Team Meeting: Yes
[2018-12-17] MEDS ORDERED: Aluminum Hydroxide/Magnesium Hydroxide Susp (30 mL) PO PRN (01:35)
[2018-12-17] MEDS ORDERED: Magnesium Hydroxide Susp 30 ml UD PO PRN (01:35)
--- NOTE | 2018-12-17 09:18 | CT ---
Date of service: 12/16/2018 PROCEDURE: CT Abdomen and Pelvis without intravenous contrast HISTORY: left flank pain, history of kidney stone COMPARISON: None. TECHNIQUE: Multiple contiguous axial images were performed through the abdomen and pelvis without the use of contrast. Subsequently, sagittal and coronal reformatted images were obtained. Radiation dose: Total exam DLP = 558.53 mGy-cm. This CT exam was performed using one or more of the following dose reduction techniques: Automated exposure control, adjustment of the mA and/or kV according to patient size, and/or use of iterative reconstruction technique. FINDINGS: LOWER THORAX: Mild atelectasis at the lung bases. LIVER: Severe nodular and cirrhotic contour of the liver with associated decreased attenuation throughout the hepatic parenchymal cortex suggestive for fatty infiltration versus hepatic parenchymal disease. Correlation with multiphasic contrast enhanced CT scan or MR would be helpful for further evaluation if clinically indicated. GALLBLADDER AND BILE DUCTS: Cholelithiasis. PANCREAS: Unremarkable. No gross lesion or ductal dilatation. SPLEEN: Prominent spleen. Splenic varices noted within the left upper abdomen. ADRENALS: Unremarkable. No mass. KIDNEYS AND URETERS: Right kidney: 6 millimeter upper pole nonobstructive calculus. 4 millimeter midpole nonobstructive calculus. Left Kidney: 2 millimeter upper pole nonobstructive calculus. 3 millimeter midpole nonobstructive calculus. VASCULATURE: Atherosclerotic calcification and plaque within the aorta. BOWEL: Small hiatal hernia. Few thickened and mildly distended loops of small bowel seen within the upper abdomen which may represent an enteritis. Underdistended and or mildly thickened left hemicolon. APPENDIX: Not well identified on this noncontrast study. If there is concern for acute appendicitis, consider correlation with a contrast-enhanced scan. PERITONEUM: Unremarkable. No free fluid. No free air. LYMPH NODES: Shotty para-aortic and inguinal lymph nodes. Shotty mesenteric lymph nodes. BLADDER: Unremarkable. REPRODUCTIVE: Heterogeneous and prominent prostate with calcifications. BONES: Degenerative changes in the spine. Bridging sclerosis of the bilateral SI joints. Prominent heterotopic bone seen emanating from the posterior left iliac bone extending to the level of the gluteal muscles. Clinical correlation. Productive change at the ischial tuberosities bilaterally. OTHER FINDINGS: None. IMPRESSION: 1. Bilateral nonobstructing renal calculi. 2. Evidence of advanced cirrhosis with a nodular and cirrhotic liver as well as prominent spleen and upper abdominal varices. Clinical correlation. 3. Small hiatal hernia. 4. Cholelithiasis. Correlation with right upper quadrant ultrasound maybe helpful if clinically indicated. 5. Few thickened and mildly distended loops of small bowel seen within the upper and mid abdomen which may represent an enteritis. Underdistended and or mildly thickened left hemicolon. 6. Degenerative changes in the spine. Bridging sclerosis of the bilateral SI joints. Prominent heterotopic bone seen emanating from the posterior left iliac bone extending to the level of the gluteal muscles. Clinical correlation. Productive change at the ischial tuberosities bilaterally. 7. Additional findings as above. A preliminary report was provided at 10:54 p.m. on 12/16/[address] Brandon Jackman from [employer].
[2018-12-17] MEDS: Multiple Vitamins Tab PO SCH (10:38)
--- NOTE | 2018-12-17 14:08 | PCM.PSYCH ---
Initial Psychiatric Evaluation - Initial Psychiatric Evaluation Type of Admission: Voluntary Legal Status: Capacity Chief Complaint (in patient's own words): "I need to stop this" History of Present Illness and Precipitating Events: This is a 53 y/o LM< , has 5 children, lives with his son in [place] but visiting [place], on disability He admits to using intranasal heroin (5 bags) x 20 yrs, alcohol (2 lt) since age 15 and crack cocaine He smokes 1 ppd cigarette Used suboxone for 5 years. He was in detox 3 times but never went to rehab He admits to feeling depressed and has been admitted to psych many times He also admits to having attempted suicide 10-15 times, last one being 3 years ago. He was in [facility] most recently No medical issues except for metal in his jaw Current Medications: Active Medications Generic Name Dose Route Start Last Admin Trade Name Freq PRN Reason Stop Dose Admin Al Hydrox/Mg Hydrox/Simethicone 30 ml 12/17/18 01:35 Maalox 30 Ml PO TID PRN Indigestion / Heartburn Clonidine HCl 0.1 mg 12/17/18 01:39 Catapres PO Q4H PRN Symptoms of alcohol withdrawl Dicyclomine HCl 10 mg 12/17/18 01:35 Bentyl PO Q6 PRN Muscle spasm Folic Acid 1 mg 12/17/18 10:00 12/17/18 10:38 Folic Acid PO 1 mg DAILY JULIAN Administration Gabapentin 400 mg 12/17/18 10:00 12/17/18 13:53 Neurontin PO 400 mg TID JULIAN Administration Hydroxyzine HCl 50 mg 12/17/18 01:41 Atarax PO QID PRN Anxiety Ibuprofen 600 mg 12/17/18 01:35 Motrin Tab PO Q6 PRN Pain, moderate (4-7) Loperamide HCl 2 mg 12/17/18 01:35 Imodium PO Q8 PRN Diarrhea Lorazepam 2 mg 12/17/18 10:00 12/17/18 10:37 Ativan PO 12/22/18 09:59 2 mg Q8H JULIAN Administration Taper Lorazepam 1 mg 12/17/18 09:46 Ativan PO Q4H PRN Symptoms of alcohol withdrawl Magnesium Hydroxide 30 ml 12/17/18 01:35 Milk Of Magnesia PO 12/19/18 10:01 BID PRN Constipation Multivitamins 1 tab 12/17/18 10:00 12/17/18 10:38 Hexavitamin PO 1 tab DAILY JULIAN Administration Ondansetron HCl 4 mg 12/17/18 01:35 Zofran Tab PO Q8 PRN Nausea/Vomiting Thiamine HCl 100 mg 12/17/18 10:00 12/17/18 10:38 Vitamin B1 Tab PO 100 mg DAILY JULIAN Administration Trazodone HCl 100 mg 12/17/18 01:39 Desyrel PO HS PRN Insomnia Past Psychiatric History - Past Psychiatric History Previous Treatment History: Inpatient Pertinent Medical Hx (Current Medical&Sleep Prob, Allergies): Allergies Allergy/AdvReac Type Severity Reaction Status Date / Time No Known Allergies Allergy Verified 12/16/18 18:52 Folic Acid 1 mg PO DAILY #30 tab 07/26/17 Thiamine [Vitamin B1 Tab] 100 mg PO DAILY #30 tab 07/26/17 Gabapentin [Neurontin] 100 mg PO TID 30 Days #90 cap 09/25/17 Mirtazapine [Remeron] 15 mg PO HS 30 Days #30 tab 09/25/17 Cyclobenzaprine [Cyclobenzaprine HCl] 10 mg PO BID #15 tab 09/26/17 Ibuprofen [Motrin Tab] 600 mg PO Q6 #30 tab 09/26/17 Lidocaine [Aspercreme] 1 each TP DAILY #10 adh..patch 09/26/17 Ibuprofen [Motrin Tab] 600 mg PO Q6 #30 tab 10/09/17 Tamsulosin [Flomax] 0.4 mg PO DAILY #12 cap 10/09/17 Review of Systems - Psychiatric Psychiatric: Abnormal Sleep Pattern, Anhedonia, Anxiety, Behavioral Changes, Change in Appetite, Depression, Difficulty Concentrating. absent: Hallucinations, Homicidal Ideation, Suicidal Ideation Mental Status Examination - Personal Presentation Personal Presentation: Looks stated age - Affect Affect: Constricted - Motor Activity Motor Activity: Calm - Reliability in Providing Information Reliability in Providing Information: Good - Speech Speech: Organized - Mood Mood: Depressed, Anxious - Formal Thought Process Formal Thought Process: No Impairment - Cognitive Functions Orientation: Person, Place, Situation, Time Sensorium: Alert Attention/Concentration: Attentive Estimate of Intelligence: Average Judgement: Intact, as evidence by: Insight regarding need for hospitalization Memory: Recent intact, as evidence by: Ability to recall events of the day, Roby te intact, as evidenced by: Abilit to recall sig. life events - Risk Risk: Withdrawal, Diminished functioning - Strength & Assets Inventory Strength & Assets Inventory: Cooperative - Limitations Limitations: Other DSM 5 DX - DSM 5 DSM 5 Diagnosis: Alcohol withdrawal Alcohol use d/o - severe Opioid withdrawal Opioid use d/o - severe Cocaine use d/o - severe Major depression, recurrent, moderate - Recommended/Plan of Treatment Treatment Recommendations and Plan of Treatment: Taper with lorazepam and buprenorphine Gabapentin for augmentation if needed As needed medications All risks, benefits and alternatives of the meds discussed, and the pt agreed and understood. Attend groups and activities Supportive therapy and psychoeducation ID for abstinence CBT for relapse prevention Encourage MAT Refer to rehab or IOP, and self-help groups Teach healthy lifestyle methods, i.e. diet, exercise, meditation Smoking cessation with ID Nicotine patch if needed 34 min Projected ELOS: 5 days Prognosis: good - Smoking Cessation Smoking Cessation Initiated: Yes
[2018-12-17] MEDS: Magnesium Oxide 400 mg Tab UD PO SCH (17:02)
[2018-12-17] MEDS ORDERED: Buprenorphine Hydrochloride 2 mg SL ONE ×2 (17:11→18:15)
[2018-12-18] MEDS: Multiple Vitamins Tab PO SCH (10:37)
[2018-12-18] MEDS: Magnesium Oxide 400 mg Tab UD PO SCH ×2 (10:37→16:59)
[2018-12-18] MEDS: Buprenorphine Hydrochloride 2 mg SL SCH (10:40)
--- NOTE | 2018-12-18 13:11 | PCM.PYCHPN ---
Psychiatric Progress Note - Psychiatric Progress Note Patient seen today, length of contact: 16 min Patient Chief Complaint: "I am tired" Problems Identified/Issues Discussed: The pt is seen, chart reviewed, case is discussed with staff. The pt is compliant with medications and reports no side-effects. Symptoms are improving but needs more time to stabilize and to avoid relapse Support given, psycho-education provided. After care discussed. Medication Change: Yes (detox changes daily) Medical Record Reviewed: Yes Mental Status Examination - Cognitive Function Orientation: Person, Place, Situation, Time Memory: Intact Attention: WNL Concentration: Poor Association: WNL Fund of Knowledge: Poor - Mood Mood: Depressed, Anxious - Affect Affect: Constricted - Formal Thought Process Formal Thought Process: No Impairment - Suicidal Ideation Suicidal Ideation: No - Homicidal Ideation Homicidal Ideation: No Goal/Treatment Plan - Goal/Treatment Plan Need for Continued Stay: Discharge may exacerbated symptoms, Severe functional impairment Progress Toward Problem(s) and Goals/Treatment Plan: Taper with lorazepam and buprenorphine Gabapentin for augmentation if needed As needed medications All risks, benefits and alternatives of the meds discussed, and the pt agreed and understood. Attend groups and activities Supportive therapy and psychoeducation GA for abstinence CBT for relapse prevention Encourage MAT Refer to rehab or IOP, and self-help groups Teach healthy lifestyle methods, i.e. diet, exercise, meditation Smoking cessation with GA Nicotine patch if needed
[2018-12-19] MEDS: Multiple Vitamins Tab PO SCH (09:36)
[2018-12-19] MEDS: Buprenorphine Hydrochloride 2 mg SL SCH (10:19)
[2018-12-19] MEDS: Magnesium Oxide 400 mg Tab UD PO SCH ×3 (10:36→18:00)
--- NOTE | 2018-12-19 14:35 | CP.PCM.CON ---
<RedVíctor - Last Filed: 12/19/18 16:57> History of Present Illness - History of Present Illness History of Present Illness: 53 year old male with a past medical history of hepatitis C, cholelithiasis, liver cirrhosis, nephrolithiasis and hiatal hernia being comes in [facility] for detox unit. Hospitalist was consulted after patient began showing signs of agitation and confusion. Patient has been seen multiple times in the hospital for similar admissions. Patient per chart review has extensive polysubstance abuse in the past. The ROS was limited due to patient's medications he received prior to being seen. Medical history: cholethiasis, hep c, liver cirrhosis, nephrolithiasis, hiatal hernia Medications: Will verify later. Allergies: Denies Family history: unable to obtain Social history: Per chart review, inhales 5 bags of heroin x 20 years, etoh abuse (Drinks 2 liters of vodka daily x 17 years), Crack coaine abuse, 1ppd smoking , Suboxone treatment for 5 years. Review of Systems - Review of Systems Systems not reviewed;Unavailable: Altered Mental Status Past Patient History - Infectious Disease Hx of Infectious Diseases: None - Tetanus Immunizations Tetanus Immunization: Unknown - Past Medical History & Family History Past Medical History?: Yes - Past Social History Smoking Status: Light Smoker < 10 Cigarettes Daily - CARDIAC Hx Hypertension: No - PULMONARY Hx Asthma: Yes Hx Chronic Obstructive Pulmonary Disease (COPD): Yes - NEUROLOGICAL Hx Seizures: No - HEENT Hx HEENT Problems: No - RENAL Hx Chronic Kidney Disease: Yes Hx Kidney Stones: Yes - ENDOCRINE/METABOLIC Hx Endocrine Disorders: No - HEMATOLOGICAL/ONCOLOGICAL Hx Human Immunodeficiency Virus (HIV): No - INTEGUMENTARY Hx Dermatological Problems: No - MUSCULOSKELETAL/RHEUMATOLOGICAL Hx Musculoskeletal Disorders: No Hx Falls: No Hx Fractures: Yes - GASTROINTESTINAL Hx Gastrointestinal Disorders: No - GENITOURINARY/GYNECOLOGICAL Hx Sexually Transmitted Disorders: No Other/Comment: history of renal colic - PSYCHIATRIC Hx Substance Use: Yes - SURGICAL HISTORY Hx Surgeries: Yes (Jaw surgery 2014) - ANESTHESIA Hx Anesthesia: Yes Hx Anesthesia Reactions: No Meds Allergies/Adverse Reactions: Allergies Allergy/AdvReac Type Severity Reaction Status Date / Time No Known Allergies Allergy Verified 12/16/18 18:52 - Medications Medications: Current Medications Al Hydrox/Mg Hydrox/Simethicone (Maalox 30 Ml) 30 ml PO TID PRN PRN Reason: Indigestion / Heartburn Buprenorphine HCl (Subutex) 6 mg SL DAILY [facility]; Taper Stop: 12/22/18 09:59 Last Admin: 12/19/18 10:19 Dose: Not Given Clonidine HCl (Catapres) 0.1 mg PO Q4H PRN PRN Reason: Symptoms of alcohol withdrawl Diazepam (Valium) 5 mg PO Q6 PRN PRN Reason: Severe anxiety Last Admin: 12/19/18 14:07 Dose: 5 mg Dicyclomine HCl (Bentyl) 10 mg PO Q6 PRN PRN Reason: Muscle spasm Folic Acid (Folic Acid) 1 mg PO DAILY [facility] Last Admin: 12/19/18 09:37 Dose: 1 mg Gabapentin (Neurontin) 400 mg PO TID [facility] Last Admin: 12/19/18 14:08 Dose: 400 mg Haloperidol (Haldol) 5 mg PO Q4 PRN PRN Reason: Agitation Last Admin: 12/19/18 10:36 Dose: 5 mg Haloperidol Lactate (Haldol) 5 mg IM Q6 PRN PRN Reason: severe agitation Hydroxyzine HCl (Atarax) 50 mg PO QID PRN PRN Reason: Anxiety Last Admin: 12/17/18 21:49 Dose: 50 mg Ibuprofen (Motrin Tab) 600 mg PO Q6 PRN PRN Reason: Pain, moderate (4-7) Loperamide HCl (Imodium) 2 mg PO Q8 PRN PRN Reason: Diarrhea Lorazepam (Ativan) 1 mg PO Q4H PRN PRN Reason: Symptoms of alcohol withdrawl Last Admin: 12/19/18 07:58 Dose: 1 mg Lorazepam (Ativan) 2 mg PO .TAPER JULIAN; Taper Stop: 12/23/18 17:59 Magnesium Oxide (Mag-Ox) 400 mg PO TID [facility] Last Admin: 12/19/18 14:08 Dose: 400 mg Multivitamins (Hexavitamin) 1 tab PO DAILY [facility] Last Admin: 12/19/18 09:36 Dose: 1 tab Ondansetron HCl (Zofran Tab) 4 mg PO Q8 PRN PRN Reason: Nausea/Vomiting Thiamine HCl (Vitamin B1 Tab) 100 mg PO DAILY [facility] Last Admin: 12/19/18 09:36 Dose: 100 mg Trazodone HCl (Desyrel) 100 mg PO HS PRN PRN Reason: Insomnia Last Admin: 12/18/18 21:01 Dose: 100 mg Physical Exam - Head Exam Head Exam: ATRAUMATIC, NORMAL INSPECTION - Eye Exam Eye Exam: EOMI, Normal appearance, PERRL Pupil Exam: NORMAL ACCOMODATION - ENT Exam ENT Exam: Mucous Membranes Moist, Normal Oropharynx - Respiratory Exam Respiratory Exam: Clear to Auscultation Bilateral, NORMAL BREATHING PATTERN. absent: Prolonged Expiratory Phase, Respiratory Distress - Cardiovascular Exam Cardiovascular Exam: +S1, +S2 - GI/Abdominal Exam GI & Abdominal Exam: Normal Bowel Sounds, Soft. absent: Organomegaly, T enderness - Extremities Exam Extremities exam: Positive for: normal inspection. Negative for: full ROM, pedal edema - Back Exam Back exam: NORMAL INSPECTION. absent: CVA tenderness (R), paraspinal tenderness - Neurological Exam Neurological exam: Alert, CN II-XII Intact, Oriented x3 - Psychiatric Exam Psychiatric exam: Normal Affect, Normal Mood - Skin Skin Exam: Dry, Intact, Normal Color Results - Vital Signs Recent Vital Signs: Last Vital Signs Temp 98 F 12/19/18 09:07 Pulse 100 H 12/19/18 13:36 Resp 16 12/19/18 13:36 BP 128/73 12/19/18 13:36 Pulse Ox 96 12/19/18 13:36 - Labs Result Diagrams: 12/16/18 19:54 12/19/18 14:16 Assessment & Plan - Assessment and Plan (Free Text) Assessment: 53 year old male with a past medical history of hepatitis C, cholelithaisis, liver cirrhosis, nephrolithiaisis, and hiatal hernia presents in etoh witdrawal from detox unit. Plan: 1.Etoh withdrawal [id number] on admission CIWA 10 earlier today Psychiatry consulted---> Help Appreciated Medications: Ativan 2mg PO TAPER JULIAN (Stopped 12/19/18) Ativan 2mg PO Q3 JULIAN Ativan 1mg po q4 prn Clonidine .1mg PO Q4 PRN Thiamine 100mg PO Daily Multivitamin 1 tab po DAILY JULIAN Folic acid 1mg PO DAILY JULIAN 2.Insomnia -Continue Trazadone 100mg PO HS PRN 3. Nausea -Continue Zofran 4mg PO Q8PRN -Continue Maalox 30ml PO TID PRN 4.Agigtation -Continue Haloperidol 5mg IM Q6 PRN 5.Elevated total bilirubin -4.0 on presentation -Will monitor at this time. 6.Heroin abuse -Continue Subutex 6mg SL DAILY JULIAN ppx GI ppx not indicated at this time. Dispo: Will continue to monitor and remain in detox at this time. Will repeat A.M. labs tomorrow. Plan discussed with Attending Dr. Streeter. Víctor Moon, PGY-2 <Rambo Streeter - Last Filed: 12/19/18 18:01> Meds - Medications Medications: Current Medications Al Hydrox/Mg Hydrox/Simethicone (Maalox 30 Ml) 30 ml PO TID PRN PRN Reason: Indigestion / Heartburn Buprenorphine HCl (Subutex) 6 mg SL DAILY JULIAN; Taper Stop: 12/22/18 09:59 Last Admin: 12/19/18 10:19 Dose: Not Given Clonidine HCl (Catapres) 0.1 mg PO Q4H PRN PRN Reason: Symptoms of alcohol withdrawl Diazepam (Valium) 5 mg PO Q6 PRN PRN Reason: Severe anxiety Last Admin: 12/19/18 14:07 Dose: 5 mg Dicyclomine HCl (Bentyl) 10 mg PO Q6 PRN PRN Reason: Muscle spasm Folic Acid (Folic Acid) 1 mg PO DAILY JULIAN Last Admin: 12/19/18 09:37 Dose: 1 mg Gabapentin (Neurontin) 400 mg PO TID JULIAN Last Admin: 12/19/18 14:08 Dose: 400 mg Haloperidol (Haldol) 5 mg PO Q4 PRN PRN Reason: Agitation Last Admin: 12/19/18 10:36 Dose: 5 mg Haloperidol Lactate (Haldol) 5 mg IM Q6 PRN PRN Reason: severe agitation Hydroxyzine HCl (Atarax) 50 mg PO QID PRN PRN Reason: Anxiety Last Admin: 12/17/18 21:49 Dose: 50 mg Ibuprofen (Motrin Tab) 600 mg PO Q6 PRN PRN Reason: Pain, moderate (4-7) Loperamide HCl (Imodium) 2 mg PO Q8 PRN PRN Reason: Diarrhea Lorazepam (Ativan) 1 mg PO Q4H PRN PRN Reason: Symptoms of alcohol withdrawl Last Admin: 12/19/18 07:58 Dose: 1 mg Lorazepam (Ativan) 2 mg PO Q3 [facility]; Taper Stop: 12/23/18 17:59 Magnesium Oxide (Mag-Ox) 400 mg PO TID [facility] Last Admin: 12/19/18 14:08 Dose: 400 mg Multivitamins (Hexavitamin) 1 tab PO DAILY [facility] Last Admin: 12/19/18 09:36 Dose: 1 tab Ondansetron HCl (Zofran Tab) 4 mg PO Q8 PRN PRN Reason: Nausea/Vomiting Thiamine HCl (Vitamin B1 Tab) 100 mg PO DAILY [facility] Last Admin: 12/19/18 09:36 Dose: 100 mg Trazodone HCl (Desyrel) 100 mg PO HS PRN PRN Reason: Insomnia Last Admin: 12/18/18 21:01 Dose: 100 mg Results - Vital Signs Recent Vital Signs: Last Vital Signs Temp 98 F 12/19/18 09:07 Pulse 100 H 12/19/18 13:36 Resp 16 12/19/18 13:36 BP 128/73 12/19/18 13:36 Pulse Ox 96 12/19/18 13:36 - Labs Result Diagrams: 12/16/18 19:54 12/19/18 14:16 Labs: Laboratory Results - last 24 hr 12/19/18 12/19/18 14:16 14:16 Sodium 136 Potassium 3.9 Chloride 104 Carbon Dioxide 27 Anion Gap 9 L BUN 13 Creatinine 0.7 L Est GFR ( Amer) > 60 Est GFR (Non-Af Amer) > 60 Random Glucose 120 H D Calcium 8.8 Phosphorus 3.3 Magnesium 1.3 L Total Bilirubin 4.5 H AST 148 H D ALT 72 Alkaline Phosphatase 112 Ammonia 63 H Total Protein 6.7 Albumin 3.2 L Globulin 3.6 Albumin/Globulin Ratio 0.9 L Attending/Attestation - Attestation I have personally seen and examined this patient.: Yes I have fully participated in the care of the patient.: Yes I have reviewed all pertinent clinical information: Yes Notes (Text): 12/19/18 17:59 Medical attending: Patient was seen and examined by me. Agree with the above note by the resident The patient was seen in 7D. He was awake, however agitated. He kept having to be re-directed by the staff as he was repeatedly getting out of bed Patient is currently at 7D for alcohol and cocaine. He has been getting Ativan as well as Valium. Per review of orders will make the ativan be given Q3hrs PRN. We should also repeat the CBC and CMP as well Rambo Streeter
[2018-12-19 15:07] LABS: ALB/GLOB RATIO 0.9 (1.0-2.1); ALBUMIN 3.2 g/dL (3.5-5.0); ALT/SGPT 72 U/L (21-72); AST/SGOT 148 U/L (17-59); BLOOD UREA NITROGEN 13 mg/dL (9-20); CALCIUM 8.8 mg/dl (8.6-10.4); GFR NON-AFRICAN AMERICAN > 60
--- NOTE | 2018-12-19 23:35 | PCM.PYCHPN ---
Psychiatric Progress Note - Psychiatric Progress Note Patient seen today, length of contact: 19 min Patient Chief Complaint: No c/c Seen as a follow up Problems Identified/Issues Discussed: The pt is seen, chart reviewed, case is discussed with staff. He is confused now In DT but also high ammonia could be a reason Agitated easily, restless, tries to leave but is very unsteady and disoriented Put on 1:1 Additional medsgiven Medical consult Labs Medication Change: Yes (detox changes daily) Medical Record Reviewed: Yes Mental Status Examination - Cognitive Function Memory: Impaired Attention: Poor Concentration: Poor Association: Loose Fund of Knowledge: Poor - Mood Mood: Anxious - Affect Affect: Blunted - Speech Speech: Slurred - Formal Thought Process Formal Thought Process: Loosening of associations - Suicidal Ideation Suicidal Ideation: No - Homicidal Ideation Homicidal Ideation: No Goal/Treatment Plan - Goal/Treatment Plan Need for Continued Stay: Discharge may exacerbated symptoms, Severe functional impairment Progress Toward Problem(s) and Goals/Treatment Plan: Taper with lorazepam and buprenorphine Doses adjusted Medical consult and labs Gabapentin for augmentation As needed medications All risks, benefits and alternatives of the meds discussed, and the pt agreed and understood. Attend groups and activities Supportive therapy and psychoeducation [place] for abstinence CBT for relapse prevention Encourage MAT Refer to rehab or IOP, and self-help groups Teach healthy lifestyle methods, i.e. diet, exercise, meditation Smoking cessation with [place] Nicotine patch if needed
[2018-12-20 08:14] LABS: BASO % 0.4 % (0.0-2.0); EOS # 0.1 K/uL (0.0-0.7); EOS % 3.7 % (0.0-4.0); HEMOGLOBIN 12.2 g/dL (12.0-18.0); LYMPH # 0.6 K/uL (1.0-4.3); LYMPH % 19.2 % (20.0-40.0); MEAN CORPUSCULAR HEMOGLOBIN 31.1 pg (27.0-31.0); MEAN CORPUSCULAR HGB CONC 32.9 g/dL (33.0-37.0); MEAN PLATELET VOLUME 9.8 fL (7.2-11.7); MONO # 0.4 K/uL (0.0-0.8); MONO % 11.1 % (0.0-10.0); NEUT # 2.1 K/uL (1.8-7.0); NEUT % 65.6 % (50.0-75.0); RBC 3.94 Mil/uL (4.40-5.90); RED CELL DISTRIBUTION WIDTH 18.6 % (11.5-14.5); WHITE BLOOD COUNT 3.2 K/uL (4.8-10.8)
[2018-12-20 08:18] LABS: MEAN CELL VOLUME 94.3 fL (80.0-94.0)
[2018-12-20 08:51] LABS: ALB/GLOB RATIO 0.8 (1.0-2.1); ALBUMIN 2.9 g/dL (3.5-5.0); ALT/SGPT 65 U/L (21-72); AST/SGOT 137 U/L (17-59); BLOOD UREA NITROGEN 12 mg/dL (9-20); CALCIUM 8.7 mg/dl (8.6-10.4); GFR NON-AFRICAN AMERICAN > 60
--- NOTE | 2018-12-20 09:11 | CP.PCM.PN ---
<Steven Donovan - Last Filed: 12/20/18 19:10> Subjective - Date & Time of Evaluation Date of Evaluation: 12/20/18 Time of Evaluation: 09:00 - Subjective Subjective: PGY-[address] Marcio Cates Patient is seen and examined at bedside. Patient does not follow verbal command, and appears confused and lethargic, responds to sternal rub, cannot answer to questioning. As per nurse, Patient has been combative earlier this morning, and continues to be confused and agitated. ROS unable to obtain from patient due to patient's current status. Objective - Vital Signs/Intake and Output Vital Signs (last 24 hours): Temp Pulse Resp BP Pulse Ox 97.8 F 63 19 109/67 97 12/20/18 06:19 12/20/18 06:19 12/20/18 06:19 12/20/18 06:19 12/20/18 06:19 - Medications Medications: Current Medications Al Hydrox/Mg Hydrox/Simethicone (Maalox 30 Ml) 30 ml PO TID PRN PRN Reason: Indigestion / Heartburn Buprenorphine HCl (Subutex) 6 mg SL DAILY JULIAN; Taper Stop: 12/22/18 09:59 Last Admin: 12/19/18 10:19 Dose: Not Given Clonidine HCl (Catapres) 0.1 mg PO Q4H PRN PRN Reason: Symptoms of alcohol withdrawl Diazepam (Valium) 5 mg PO Q6 PRN PRN Reason: Severe anxiety Last Admin: 12/19/18 14:07 Dose: 5 mg Dicyclomine HCl (Bentyl) 10 mg PO Q6 PRN PRN Reason: Muscle spasm Folic Acid (Folic Acid) 1 mg PO DAILY JULIAN Last Admin: 12/19/18 09:37 Dose: 1 mg Gabapentin (Neurontin) 400 mg PO TID JULIAN Last Admin: 12/19/18 17:59 Dose: 400 mg Haloperidol (Haldol) 5 mg PO Q4 PRN PRN Reason: Agitation Last Admin: 12/19/18 21:55 Dose: 5 mg Haloperidol Lactate (Haldol) 5 mg IM Q6 PRN PRN Reason: severe agitation Last Admin: 12/20/18 08:44 Dose: 5 mg Hydroxyzine HCl (Atarax) 50 mg PO QID PRN PRN Reason: Anxiety Last Admin: 12/17/18 21:49 Dose: 50 mg Ibuprofen (Motrin Tab) 600 mg PO Q6 PRN PRN Reason: Pain, moderate (4-7) Lactulose (Enulose) 20 gm PO HS [facility] Last Admin: 12/19/18 21:55 Dose: 20 gm Loperamide HCl (Imodium) 2 mg PO Q8 PRN PRN Reason: Diarrhea Lorazepam (Ativan) 1 mg PO Q4H PRN PRN Reason: Symptoms of alcohol withdrawl Last Admin: 12/19/18 21:55 Dose: 1 mg Lorazepam (Ativan) 2 mg PO Q6H [facility]; Taper Stop: 12/23/18 17:59 Last Admin: 12/20/18 06:29 Dose: 2 mg Magnesium Oxide (Mag-Ox) 400 mg PO TID [facility] Last Admin: 12/19/18 18:00 Dose: 400 mg Multivitamins (Hexavitamin) 1 tab PO DAILY [facility] Last Admin: 12/19/18 09:36 Dose: 1 tab Ondansetron HCl (Zofran Tab) 4 mg PO Q8 PRN PRN Reason: Nausea/Vomiting Thiamine HCl (Vitamin B1 Tab) 100 mg PO DAILY [facility] Last Admin: 12/19/18 09:36 Dose: 100 mg Trazodone HCl (Desyrel) 100 mg PO HS PRN PRN Reason: Insomnia Last Admin: 12/18/18 21:01 Dose: 100 mg - Labs Labs: 12/20/18 07:58 12/20/18 07:48 - Constitutional Appears: Non-toxic - Head Exam Head Exam: ATRAUMATIC, NORMAL INSPECTION, NORMOCEPHALIC - Eye Exam Eye Exam: EOMI, Normal appearance - ENT Exam ENT Exam: Mucous Membranes Moist, Normal Exam - Neck Exam Neck Exam: Normal Inspection - Respiratory Exam Respiratory Exam: Clear to Ausculation Bilateral, NORMAL BREATHING PATTERN. absent: Rales, Rhonchi, Wheezes - Cardiovascular Exam Cardiovascular Exam: REGULAR RHYTHM, +S1, +S2 - GI/Abdominal Exam GI & Abdominal Exam: Soft, Normal Bowel Sounds - Extremities Exam Extremities Exam: Normal Inspection - Neurological Exam Neurological Exam: Abnormal Gait, Altered. absent: Oriented x3 - Skin Skin Exam: Dry, Normal Color, Warm Assessment and Plan - Assessment and Plan (Free Text) Assessment: 53 year old male with a past medical history of hepatitis C, cholelithaisis, liver cirrhosis, nephrolithiaisis, and hiatal hernia presents in etoh witdrawal from detox unit. Plan: 1.Etoh withdrawal [id number] on admission Management as per Psych Medications: Ativan 1mg PO Q8 JULIAN Ativan 1mg po q4 prn Clonidine .1mg PO Q4 PRN Haloperidol 5mg PO Q4 PRN Thiamine 100mg PO Daily Multivitamin 1 tab po DAILY JULIAN Folic acid 1mg PO DAILY JULIAN Continue 1:1 2.Insomnia -Continue Trazadone 100mg PO HS PRN 3. Nausea -Continue Zofran 4mg PO Q8PRN -Continue Maalox 30ml PO TID PRN 4.Agitation -Continue Haloperidol 5mg IM Q6 PRN -Diazepam 5ng Q8 PRN - Atarax 50mg PO QID PRN 5.Heroin abuse -Continue Subutex 6mg SL DAILY JULIAN 6. Thrombocytopenia - 2/2 to alcohol abuse and hx of hepatitis C -continue to monitor 7. elevated ammonia levels - Ammonia improved from 63 to 39 - lactulose 20mg PO HS 8. Elevated T Bili - 2/2 to cirrhosis 9. Hypomagnesemia - Mg Oxide 400mg PO TID 10.ppx GI ppx not indicated at this time. DISPO: Patient continues to be somnolent today, not responding to questions or examination, with moments of agitation and confusion as reported by detox unit staff, however, patient is detoxifying at this time for poly substance abuse along with previous Benzo dosing and frequency that could contribute to his current states. Noted earlier, Dr Cates along with the help of ORTHOTIST PROSTHETIST were able to sit patient in bed and patient was able to drink about 250cc electrolyte solution. We recommend oral medication to be crushed and to be given with electrolyte solution. Medicine to continue to follow at detox unit. Plan discussed with Dr Marcio Donovan, PGY-1 <Marcio Cates - Last Filed: 12/21/18 19:26> Objective - Vital Signs/Intake and Output Vital Signs (last 24 hours): Temp Pulse Resp BP Pulse Ox 97.4 F L 85 18 123/83 95 12/21/18 17:42 12/21/18 17:42 12/21/18 17:42 12/21/18 17:42 12/21/18 17:42 - Medications Medications: Current Medications Al Hydrox/Mg Hydrox/Simethicone (Maalox 30 Ml) 30 ml PO TID PRN PRN Reason: Indigestion / Heartburn Clonidine HCl (Catapres) 0.1 mg PO Q4H PRN PRN Reason: Symptoms of alcohol withdrawl Dicyclomine HCl (Bentyl) 10 mg PO Q6 PRN PRN Reason: Muscle spasm Folic Acid (Folic Acid) 1 mg PO DAILY [facility] Last Admin: 12/21/18 11:13 Dose: 1 mg Haloperidol (Haldol) 5 mg PO Q4 PRN PRN Reason: Agitation Last Admin: 12/19/18 21:55 Dose: 5 mg Haloperidol Lactate (Haldol) 5 mg IM Q6 PRN PRN Reason: severe agitation Last Admin: 12/21/18 12:47 Dose: 5 mg Hydroxyzine HCl (Atarax) 50 mg PO QID PRN PRN Reason: Anxiety Last Admin: 12/20/18 15:29 Dose: 50 mg Ibuprofen (Motrin Tab) 600 mg PO Q6 PRN PRN Reason: Pain, moderate (4-7) Lactulose (Enulose) 20 gm PO DAILY [facility] Loperamide HCl (Imodium) 2 mg PO Q8 PRN PRN Reason: Diarrhea Lorazepam (Ativan) 1 mg PO Q4H PRN PRN Reason: Symptoms of alcohol withdrawl Last Admin: 12/19/18 21:55 Dose: 1 mg Magnesium Oxide (Mag-Ox) 400 mg PO TID [facility] Last Admin: 12/21/18 17:51 Dose: 400 mg Multivitamins (Hexavitamin) 1 tab PO DAILY [facility] Last Admin: 12/21/18 11:14 Dose: 1 tab Ondansetron HCl (Zofran Tab) 4 mg PO Q8 PRN PRN Reason: Nausea/Vomiting Thiamine HCl (Vitamin B1 Tab) 100 mg PO DAILY [facility] Last Admin: 12/21/18 11:13 Dose: 100 mg Trazodone HCl (Desyrel) 100 mg PO HS PRN PRN Reason: Insomnia Last Admin: 12/18/18 21:01 Dose: 100 mg Vitamin A (Vitamin A & D Oint Ud Foilpak) 1 ea TOP BID [facility] Last Admin: 12/21/18 17:51 Dose: 1 ea - Labs Labs: 12/21/18 08:11 12/21/18 08:11 Attending/Attestation - Attestation I have personally seen and examined this patient.: Yes I have fully participated in the care of the patient.: Yes I have reviewed all pertinent clinical information, including history, physical exam and plan: Yes Notes (Text): 12/21/18 19:25 This is a late entry. Care of this patient was gone over in detail with resident Dr. Donovan. Patient was seen at 1:00 PM on 12/20/18. He was very lethargic and nonresponsive to questioning or following commands during exam and this is likely secondary to his polysubstance abuse. Marcio Cates D.O.
[2018-12-20] MEDS ORDERED: Buprenorphine Hydrochloride 2 mg SL ONE (10:53)
[2018-12-20] MEDS: Buprenorphine Hydrochloride 2 mg SL SCH (10:57)
[2018-12-20] MEDS: Multiple Vitamins Tab PO SCH ×2 (11:00→11:02)
[2018-12-20] MEDS: Magnesium Oxide 400 mg Tab UD PO SCH ×3 (11:00→18:43)
--- NOTE | 2018-12-20 11:39 | PCM.PYCHPN ---
Psychiatric Progress Note - Psychiatric Progress Note Patient seen today, length of contact: 18 min Patient Chief Complaint: No c/c Seen as a follow up again Problems Identified/Issues Discussed: The pt is seen, chart reviewed, case discussed with staff. Support and orientation given Pt is improving slowly and needs more time, still has ongoing symptoms and still confused Ammonia dropped since yesterday but still high Will decrease benzos as he is better andthis may also be (or partly due to ) liver deficiency His platelets are low too No SEs from medications Medicine is on board help appreciated. Medication Change: Yes (detox changes daily) Medical Record Reviewed: Yes Mental Status Examination - Cognitive Function Memory: Impaired Attention: Poor Concentration: Poor Association: Loose Fund of Knowledge: Poor - Mood Mood: Anxious - Affect Affect: Blunted - Speech Speech: Slurred - Formal Thought Process Formal Thought Process: Loosening of associations - Suicidal Ideation Suicidal Ideation: No - Homicidal Ideation Homicidal Ideation: No Goal/Treatment Plan - Goal/Treatment Plan Need for Continued Stay: Discharge may exacerbated symptoms, Severe functional impairment Progress Toward Problem(s) and Goals/Treatment Plan: Taper with lorazepam and buprenorphine (the latter is ending) Doses adjusted again Lactulose for hyperammonia Medical consult and labs Gabapentin for augmentation As needed medications All risks, benefits and alternatives of the meds discussed, and the pt agreed and understood. Attend groups and activities Supportive therapy and psychoeducation [place] for abstinence CBT for relapse prevention Encourage MAT Refer to rehab or IOP, and self-help groups Teach healthy lifestyle methods, i.e. diet, exercise, meditation Smoking cessation with [place] Nicotine patch if needed
[2018-12-20] MEDS ORDERED: DiphenhydrAMINE 50 mg/ml Inj IM STA (16:54)
[2018-12-20] MEDS: Vitamins A & D Oint UD Foilpak TOP SCH (18:22)
[2018-12-21 08:43] LABS: BASO % 0.5 % (0.0-2.0); EOS # 0.1 K/uL (0.0-0.7); EOS % 2.9 % (0.0-4.0); LYMPH # 0.6 K/uL (1.0-4.3); LYMPH % 12.7 % (20.0-40.0); MEAN CELL VOLUME 93.6 fL (80.0-94.0); MEAN CORPUSCULAR HGB CONC 33.1 g/dL (33.0-37.0); MEAN PLATELET VOLUME 9.4 fL (7.2-11.7); MONO # 0.5 K/uL (0.0-0.8); MONO % 10.6 % (0.0-10.0); NEUT # 3.4 K/uL (1.8-7.0); NEUT % 73.3 % (50.0-75.0); NRBC % 0.1 % (0.0-2.0); RBC 4.2 Mil/uL (4.40-5.90); RED CELL DISTRIBUTION WIDTH 18.6 % (11.5-14.5); WHITE BLOOD COUNT 4.7 K/uL (4.8-10.8)
[2018-12-21 09:00] LABS: ALB/GLOB RATIO 0.8 (1.0-2.1); ALT/SGPT 72 U/L (21-72); AST/SGOT 137 U/L (17-59); BLOOD UREA NITROGEN 12 mg/dL (9-20); CALCIUM 8.4 mg/dl (8.6-10.4); GFR NON-AFRICAN AMERICAN > 60
--- NOTE | 2018-12-21 09:03 | CP.PCM.PN ---
<Nelson Sahu - Last Filed: 12/21/18 15:35> Subjective - Date & Time of Evaluation Date of Evaluation: 12/21/18 Time of Evaluation: 13:17 - Subjective Subjective: PGY-[address] Marcio Cates Patient is seen and examined at bedside. Patient is being assisted to eat by CP. Pt does not appear to be interested in answering questions, but allowed me to examine him. He does not appear to be in any distress and is resting comfortably. Ativan has been placed on hold. ROS unable to obtained. Objective - Vital Signs/Intake and Output Vital Signs (last 24 hours): Temp Pulse Resp BP Pulse Ox 98 F 91 H 20 111/69 97 12/21/18 06:09 12/21/18 06:09 12/21/18 06:09 12/21/18 06:09 12/21/18 06:09 - Medications Medications: Current Medications Al Hydrox/Mg Hydrox/Simethicone (Maalox 30 Ml) 30 ml PO TID PRN PRN Reason: Indigestion / Heartburn Clonidine HCl (Catapres) 0.1 mg PO Q4H PRN PRN Reason: Symptoms of alcohol withdrawl Dicyclomine HCl (Bentyl) 10 mg PO Q6 PRN PRN Reason: Muscle spasm Folic Acid (Folic Acid) 1 mg PO DAILY [facility] Last Admin: 12/20/18 11:00 Dose: Not Given Haloperidol (Haldol) 5 mg PO Q4 PRN PRN Reason: Agitation Last Admin: 12/19/18 21:55 Dose: 5 mg Haloperidol Lactate (Haldol) 5 mg IM Q6 PRN PRN Reason: severe agitation Last Admin: 12/20/18 17:03 Dose: 5 mg Hydroxyzine HCl (Atarax) 50 mg PO QID PRN PRN Reason: Anxiety Last Admin: 12/20/18 15:29 Dose: 50 mg Ibuprofen (Motrin Tab) 600 mg PO Q6 PRN PRN Reason: Pain, moderate (4-7) Lactulose (Enulose) 20 gm PO HS [facility] Last Admin: 12/20/18 22:15 Dose: Not Given Loperamide HCl (Imodium) 2 mg PO Q8 PRN PRN Reason: Diarrhea Lorazepam (Ativan) 1 mg PO Q4H PRN PRN Reason: Symptoms of alcohol withdrawl Last Admin: 12/19/18 21:55 Dose: 1 mg Magnesium Oxide (Mag-Ox) 400 mg PO TID [facility] Last Admin: 12/20/18 18:43 Dose: Not Given Multivitamins (Hexavitamin) 1 tab PO DAILY [facility] Last Admin: 12/20/18 11:00 Dose: Not Given Ondansetron HCl (Zofran Tab) 4 mg PO Q8 PRN PRN Reason: Nausea/Vomiting Thiamine HCl (Vitamin B1 Tab) 100 mg PO DAILY [facility] Last Admin: 12/20/18 11:00 Dose: Not Given Trazodone HCl (Desyrel) 100 mg PO HS PRN PRN Reason: Insomnia Last Admin: 12/18/18 21:01 Dose: 100 mg Vitamin A (Vitamin A & D Oint Ud Foilpak) 1 ea TOP BID [facility] Last Admin: 12/20/18 18:22 Dose: 1 ea - Labs Labs: 12/21/18 08:11 12/21/18 08:11 - Additional Findings Additional findings: - Constitutional Appears: Non-toxic, no acute distress - Head Exam Head Exam: ATRAUMATIC, NORMAL INSPECTION, NORMOCEPHALIC - Eye Exam Eye Exam: EOMI, Normal appearance, PERRL, no scleral icterus - ENT Exam ENT Exam: Mucous Membranes Moist, Normal Exam - Neck Exam Neck Exam: Normal Inspection - Respiratory Exam Respiratory Exam: Clear to Ausculation Bilateral, NORMAL BREATHING PATTERN. absent: Rales, Rhonchi, Wheezes - Cardiovascular Exam Cardiovascular Exam: REGULAR RHYTHM, +S1, +S2 - GI/Abdominal Exam GI & Abdominal Exam: Soft, Normal Bowel Sounds - Extremities Exam Extremities Exam: Normal Inspection - Neurological Exam Neurological Exam: Alert, Awake - Skin Skin Exam: Dry, Normal Color, Warm, No jaundice Assessment and Plan - Assessment and Plan (Free Text) Assessment: 53 year old male with a past medical history of hepatitis C, cholelithiasis, liver cirrhosis, nephrolithiaisis, and hiatal hernia presents in etoh witdrawal from detox unit. Plan: Etoh withdrawal [id number] on admission Management as per Psych Medications: Ativan 1mg PO Q8 JULIAN discontinued Ativan 1mg po q4 prn Clonidine .1mg PO Q4 PRN Haloperidol 5mg PO Q4 PRN Thiamine 100mg PO Daily Multivitamin 1 tab po DAILY JULIAN Folic acid 1mg PO DAILY JULIAN Continue 1:1 Advanced Liver cirrhosis Secondary to HCV, chronic EtOH use -Abdominal CT without PO or IV contrast: 1. Bilateral nonobstructing renal calculi. 2. Evidence of advanced cirrhosis with a nodular and cirrhotic liver as well as prominent spleen and upper abdominal varices. Clinical correlation. 3. Small hiatal hernia. 4. Cholelithiasis. Correlation with right upper quadrant ultrasound maybe helpful if clinically indicated. 5. Few thickened and mildly distended loops of small bowel seen within the upper and mid abdomen which may represent an enteritis. Underdistended and or mildly thickened left hemicolon. 6. Degenerative changes in the spine. Bridging sclerosis of the bilateral SI joints. Prominent heterotopic bone seen emanating from the posterior left iliac bone extending to the level of the gluteal muscles. Clinical correlation. Productive change at the ischial tuberosities bilaterally. 7. Additional fin dings as above. -Pt with Tbili elevation as below -Hyperammonemia as below -Thrombocytopenia as below Insomnia Managed by psychiatry/detox -Continue Trazadone 100mg PO HS PRN Nausea Managed by psychiatry/detox -Continue Zofran 4mg PO Q8PRN -Continue Maalox 30ml PO TID PRN Agitation Managed by psychiatry/detox -Continue Haloperidol 5mg IM Q6 PRN -Diazepam 5ng Q8 PRN -Atarax 50mg PO QID PRN Heroin abuse -Continue Subutex 6mg SL DAILY JULIAN Thrombocytopenia -stable, no signs of bleeding -2/2 to alcohol abuse and hx of hepatitis C -continue to monitor Elevated ammonia levels -Head CT shows no acute intracranial pathology -Ammonia increased from 39 to 64 -lactulose 20mg PO changed to daytime dose from night time dose Elevated T Bili -stable -2/2 to cirrhosis Hypomagnesemia -Mg Oxide 400mg PO TID PPX GI ppx not indicated at this time. DISPO: CORRECTIVE THERAPY AIDE TEACHER, RN both informed on how to properly hydrate pt with electrolyte solution. As noted before, Dr Cates along with the help of SHERIDAN were able to sit patient in bed and patient was able to drink about 250cc electrolyte solution. We continue to recommend oral medication to be crushed and to be given with electrolyte solution. Medicine to continue to follow at detox unit. <Marcio Cates - Last Filed: 12/21/18 19:29> Objective - Vital Signs/Intake and Output Vital Signs (last 24 hours): Temp Pulse Resp BP Pulse Ox 97.4 F L 85 18 123/83 95 12/21/18 17:42 12/21/18 17:42 12/21/18 17:42 12/21/18 17:42 12/21/18 17:42 - Medications Medications: Current Medications Al Hydrox/Mg Hydrox/Simethicone (Maalox 30 Ml) 30 ml PO TID PRN PRN Reason: Indigestion / Heartburn Clonidine HCl (Catapres) 0.1 mg PO Q4H PRN PRN Reason: Symptoms of alcohol withdrawl Dicyclomine HCl (Bentyl) 10 mg PO Q6 PRN PRN Reason: Muscle spasm Folic Acid (Folic Acid) 1 mg PO DAILY [facility] Last Admin: 12/21/18 11:13 Dose: 1 mg Haloperidol (Haldol) 5 mg PO Q4 PRN PRN Reason: Agitation Last Admin: 12/19/18 21:55 Dose: 5 mg Haloperidol Lactate (Haldol) 5 mg IM Q6 PRN PRN Reason: severe agitation Last Admin: 12/21/18 12:47 Dose: 5 mg Hydroxyzine HCl (Atarax) 50 mg PO QID PRN PRN Reason: Anxiety Last Admin: 12/20/18 15:29 Dose: 50 mg Ibuprofen (Motrin Tab) 600 mg PO Q6 PRN PRN Reason: Pain, moderate (4-7) Lactulose (Enulose) 20 gm PO DAILY [facility] Loperamide HCl (Imodium) 2 mg PO Q8 PRN PRN Reason: Diarrhea Lorazepam (Ativan) 1 mg PO Q4H PRN PRN Reason: Symptoms of alcohol withdrawl Last Admin: 12/19/18 21:55 Dose: 1 mg Magnesium Oxide (Mag-Ox) 400 mg PO TID [facility] Last Admin: 12/21/18 17:51 Dose: 400 mg Multivitamins (Hexavitamin) 1 tab PO DAILY [facility] Last Admin: 12/21/18 11:14 Dose: 1 tab Ondansetron HCl (Zofran Tab) 4 mg PO Q8 PRN PRN Reason: Nausea/Vomiting Thiamine HCl (Vitamin B1 Tab) 100 mg PO DAILY [facility] Last Admin: 12/21/18 11:13 Dose: 100 mg Trazodone HCl (Desyrel) 100 mg PO HS PRN PRN Reason: Insomnia Last Admin: 12/18/18 21:01 Dose: 100 mg Vitamin A (Vitamin A & D Oint Ud Foilpak) 1 ea TOP BID JULIAN Last Admin: 12/21/18 17:51 Dose: 1 ea - Labs Labs: 12/21/18 08:11 12/21/18 08:11 Attending/Attestation - Attestation I have personally seen and examined this patient.: Yes I have fully participated in the care of the patient.: Yes I have reviewed all pertinent clinical information, including history, physical exam and plan: Yes Notes (Text): 12/21/18 19:27 Patient was seen and examined at 8:30 AM Care of this patient was gone over in detail with resident Dr. Sahu. Spoke with Nurse Priyanka: Explained that she is to help patient sit up with assistance and have patient drink sports drink 250 ml every 6 hours and that medications may be crushed PO and mixed into the drink as needed. CT Head did NOT show any acute disease Spoke with Psychiatrist Dr. Loco: HOLD Ativan and Haldol as these drugs likely contributing to the continued lethargy of patient Marcio Cates D.O.
[2018-12-21] MEDS ORDERED: Buprenorphine Hydrochloride 2 mg SL ONE (10:00)
[2018-12-21] MEDS: Magnesium Oxide 400 mg Tab UD PO SCH ×3 (11:14→17:51)
[2018-12-21] MEDS: Multiple Vitamins Tab PO SCH (11:14)
--- NOTE | 2018-12-21 11:14 | CT ---
Date of service: 12/21/2018 PROCEDURE: CT HEAD WITHOUT CONTRAST. HISTORY: Elevated Ammonia Level, Lethargic COMPARISON: 02/13/2016. TECHNIQUE: Axial computed tomography images were obtained through the head/brain without intravenous contrast. Radiation dose: Total exam DLP = 1363.25 mGy-cm. This CT exam was performed using one or more of the following dose reduction techniques: Automated exposure control, adjustment of the mA and/or kV according to patient size, and/or use of iterative reconstruction technique. FINDINGS: HEMORRHAGE: No intracranial hemorrhage. BRAIN: Barry-white matter differentiation is preserved. There is no mass, mass effect or abnormal extra-axial fluid collection. There is no territorial infarction. The midline sagittal structures are normal. VENTRICLES: The ventricles are normal in size, shape and configuration. CALVARIUM: There is no calvarial fracture or extracranial soft tissue swelling. PARANASAL SINUSES: Predominantly clear. MASTOID AIR CELLS: Predominantly clear. OTHER FINDINGS: There is an old deformity in the left zygomatic arch. IMPRESSION: No acute intracranial abnormality.
[2018-12-21] MEDS: Vitamins A & D Oint UD Foilpak TOP SCH ×2 (11:21→17:51)
--- NOTE | 2018-12-21 11:30 | PCM.PYCHPN ---
Psychiatric Progress Note - Psychiatric Progress Note Patient seen today, length of contact: 18 min Patient Chief Complaint: No c/c Seen as a follow up again Problems Identified/Issues Discussed: The pt is seen, chart reviewed, case discussed with staff. Support and orientation given He is in DT or delirium due to high ammonia Lactulose given Medicine is on board help appreciated. Medication Change: Yes (ativan decreased - he is over sedated) Medical Record Reviewed: Yes Mental Status Examination - Cognitive Function Memory: Impaired Attention: Poor Concentration: Poor Association: Loose Fund of Knowledge: Poor - Mood Mood: Anxious - Affect Affect: Blunted - Speech Speech: Slurred - Formal Thought Process Formal Thought Process: Loosening of associations - Suicidal Ideation Suicidal Ideation: No - Homicidal Ideation Homicidal Ideation: No Goal/Treatment Plan - Goal/Treatment Plan Need for Continued Stay: Discharge may exacerbated symptoms, Severe functional impairment Progress Toward Problem(s) and Goals/Treatment Plan: Taper with lorazepam and buprenorphine (the latter is ending) Doses adjusted again Lactulose for hyperammonia Medical consult and labs Gabapentin for augmentation As needed medications All risks, benefits and alternatives of the meds discussed, and the pt agreed and understood. Supportive therapy and psychoeducation Encourage MAT Refer to rehab or IOP, and self-help groups Teach healthy lifestyle methods, i.e. diet, exercise, meditation
[2018-12-21] MEDS ORDERED: DiphenhydrAMINE 50 mg/ml Inj IM STA (21:59)
[2018-12-22 08:20] LABS: BASO % 0.6 % (0.0-2.0); EOS # 0.1 K/uL (0.0-0.7); HEMOGLOBIN 13.8 g/dL (12.0-18.0); LYMPH # 0.6 K/uL (1.0-4.3); LYMPH % 20.5 % (20.0-40.0); MEAN CELL VOLUME 93.7 fL (80.0-94.0); MEAN CORPUSCULAR HEMOGLOBIN 30.6 pg (27.0-31.0); MEAN CORPUSCULAR HGB CONC 32.6 g/dL (33.0-37.0); MEAN PLATELET VOLUME 9.2 fL (7.2-11.7); MONO # 0.4 K/uL (0.0-0.8); MONO % 13.2 % (0.0-10.0); NEUT # 1.9 K/uL (1.8-7.0); NEUT % 62.7 % (50.0-75.0); NRBC % 0.2 % (0.0-2.0); RBC 4.5 Mil/uL (4.40-5.90); RED CELL DISTRIBUTION WIDTH 18.7 % (11.5-14.5); WHITE BLOOD COUNT 3.1 K/uL (4.8-10.8)
[2018-12-22 08:40] LABS: ALB/GLOB RATIO 0.8 (1.0-2.1); ALT/SGPT 54 U/L (21-72); AST/SGOT 130 U/L (17-59); BLOOD UREA NITROGEN 15 mg/dL (9-20); CALCIUM 8.7 mg/dl (8.6-10.4); GFR NON-AFRICAN AMERICAN > 60
[2018-12-22] MEDS: Magnesium Oxide 400 mg Tab UD PO SCH ×3 (10:13→18:01)
[2018-12-22] MEDS: Multiple Vitamins Tab PO SCH (10:14)
[2018-12-22] MEDS: Vitamins A & D Oint UD Foilpak TOP SCH ×2 (10:16→18:01)
--- NOTE | 2018-12-22 14:12 | CP.PCM.PN ---
"<Adiel Vera - Last Filed: 12/22/18 18:01> Subjective - Date & Time of Evaluation Date of Evaluation: 12/22/18 Time of Evaluation: 10:40 - Subjective Subjective: Patient seen and examined at bedside sleeping. Patient was awakened with tactile stimuli. ROS unabled to obtained due to mechanical aphasia. He did note that he was hungry with a head nod. Objective - Vital Signs/Intake and Output Vital Signs (last 24 hours): Temp Pulse Resp BP Pulse Ox 98.0 F 99 H 18 126/83 98 12/22/18 13:29 12/22/18 13:29 12/22/18 13:29 12/22/18 13:29 12/22/18 13:29 - Medications Medications: Current Medications Al Hydrox/Mg Hydrox/Simethicone (Maalox 30 Ml) 30 ml PO TID PRN PRN Reason: Indigestion / Heartburn Clonidine HCl (Catapres) 0.1 mg PO Q4H PRN PRN Reason: Symptoms of alcohol withdrawl Dicyclomine HCl (Bentyl) 10 mg PO Q6 PRN PRN Reason: Muscle spasm Folic Acid (Folic Acid) 1 mg PO DAILY [facility] Last Admin: 12/22/18 10:14 Dose: 1 mg Haloperidol (Haldol) 5 mg PO Q4 PRN PRN Reason: Agitation Last Admin: 12/22/18 03:26 Dose: 5 mg Haloperidol Lactate (Haldol) 5 mg IM Q6 PRN PRN Reason: severe agitation Last Admin: 12/21/18 12:47 Dose: 5 mg Hydroxyzine HCl (Atarax) 50 mg PO QID PRN PRN Reason: Anxiety Last Admin: 12/20/18 15:29 Dose: 50 mg Ibuprofen (Motrin Tab) 600 mg PO Q6 PRN PRN Reason: Pain, moderate (4-7) Lactulose (Enulose) 20 gm PO BID [facility] Loperamide HCl (Imodium) 2 mg PO Q8 PRN PRN Reason: Diarrhea Lorazepam (Ativan) 1 mg PO Q4H PRN PRN Reason: Symptoms of alcohol withdrawl Last Admin: 12/22/18 03:26 Dose: 1 mg Magnesium Oxide (Mag-Ox) 400 mg PO TID [facility] Last Admin: 12/22/18 13:10 Dose: 400 mg Multivitamins (Hexavitamin) 1 tab PO DAILY [facility] Last Admin: 12/22/18 10:14 Dose: 1 tab Ondansetron HCl (Zofran Tab) 4 mg PO Q8 PRN PRN Reason: Nausea/Vomiting Thiamine HCl (Vitamin B1 Tab) 100 mg PO DAILY [facility] Last Admin: 12/22/18 10:16 Dose: 100 mg Trazodone HCl (Desyrel) 100 mg PO HS PRN PRN Reason: Insomnia Last Admin: 12/18/18 21:01 Dose: 100 mg Vitamin A (Vitamin A & D Oint Ud Foilpak) 1 ea TOP BID [facility] Last Admin: 12/22/18 10:16 Dose: 1 ea - Labs Labs: 12/22/18 08:06 12/22/18 08:06 - Head Exam Head Exam: ATRAUMATIC, NORMAL INSPECTION, NORMOCEPHALIC - Eye Exam Eye Exam: EOMI. absent: Scleral icterus - ENT Exam ENT Exam: Mucous Membranes Moist - Respiratory Exam Respiratory Exam: Clear to Ausculation Bilateral. absent: Accessory Muscle Use - Cardiovascular Exam Cardiovascular Exam: RRR, +S1, +S2 - GI/Abdominal Exam GI & Abdominal Exam: Soft. absent: Tenderness - Extremities Exam Extremities Exam: Normal Inspection. absent: Pedal Edema - Neurological Exam Neurological Exam: Alert, Awake - Psychiatric Exam Psychiatric exam: Flat Affect - Skin Skin Exam: Dry, Normal Color, Warm Assessment and Plan - Assessment and Plan (Free Text) Assessment: 53 year old male with a past medical history of hepatitis C, cholelithiasis, liver cirrhosis, nephrolithiaisis, and hiatal hernia presents in etoh witdrawal from detox unit. Plan: Etoh withdrawal [id number] on admission Management as per Psych Medications: Ativan 1mg po q4 prn Clonidine .1mg PO Q4 PRN Haloperidol 5mg PO Q4 PRN | IM Q6H PRN Thiamine 100mg PO Daily Multivitamin 1 tab po DAILY [facility] Folic acid 1mg PO DAILY [facility] Continue 1:1 Advanced Liver cirrhosis Secondary to HCV, chronic EtOH use -Abdominal CT without PO or IV contrast: 1. Bilateral nonobstructing renal calculi. 2. Evidence of advanced cirrhosis with a nodular and cirrhotic liver as well as prominent spleen and upper abdominal varices. Clinical correlation. 3. Small hiatal hernia. 4. Cholelithiasis. Correlation with right upper quadrant ultrasound maybe helpful if clinically indicated. 5. Few thickened and mildly distended loops of small bowel seen within the upper and mid abdomen which may represent an enteritis. Underdistended and or mildly thickened left hemicolon. 6. Degenerative changes in the spine. Bridging sclerosis of the bilateral SI joints. Prominent heterotopic bone seen emanating from the posterior left iliac bone extending to the level of the gluteal muscles. Clinical correlation. Productive change at the ischial tuberosities bilaterally. 7. Additional findings as above. -Pt with Tbili elevation as below -Hyperammonemia as below -Thrombocytopenia as below Insomnia Managed by psychiatry/detox -Continue Trazadone 100mg PO HS PRN Nausea Managed by psychiatry/detox -Continue Zofran 4mg PO Q8PRN -Continue Maalox 30ml PO TID PRN Agitation Managed by psychiatry/detox -Continue Haloperidol 5mg IM Q6 PRN -Diazepam 5ng Q8 PRN -Atarax 50mg PO QID PRN Heroin abuse -Continue Subutex 6mg SL DAILY [facility] Thrombocytopenia (Improving) Likely 2/2 to EtoH Bone Marrow Suppression and Liver Cirrhosis. -stable, no signs of bleeding -2/2 to alcohol abuse and hx of hepatitis C -continue to monitor Cocaine Abuse -Avoid Beta Blockers. Elevated ammonia levels (Improving) -Head CT shows no acute intracranial pathology -Ammonia increased from 39-->64-->50 -lactulose 20mg PO BID Elevated T Bili (Improving) -stable -2/2 to cirrhosis Hypomagnesemia -Mg Oxide 400mg PO TID PPX GI ppx not indicated at this time. 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 As noted before, Dr Cates along with the help of SHERIDAN were able to sit patient in bed and patient was able to drink about 250cc electrolyte solution. We continue to recommend oral medication to be crushed and to be given with electrolyte solution. Medicine to continue to follow at detox unit. Patient discussed with Attending Adiel Vera, PGY-1 <Marcio Cates - Last Filed: 12/23/18 17:28> Objective - Vital Signs/Intake and Output Vital Signs (last 24 hours): Temp Pulse Resp BP Pulse Ox 97.8 F 83 18 115/67 95 12/23/18 16:46 12/23/18 16:46 12/23/18 16:46 12/23/18 16:46 12/23/18 16:46 - Medications Medications: Current Medications Al Hydrox/Mg Hydrox/Simethicone (Maalox 30 Ml) 30 ml PO TID PRN PRN Reason: Indigestion / Heartburn Clonidine HCl (Catapres) 0.1 mg PO Q4H PRN PRN Reason: Symptoms of alcohol withdrawl Dicyclomine HCl (Bentyl) 10 mg PO Q6 PRN PRN Reason: Muscle spasm Folic Acid (Folic Acid) 1 mg PO DAILY [facility] Last Admin: 12/23/18 09:33 Dose: 1 mg Haloperidol (Haldol) 5 mg PO Q4 PRN PRN Reason: Agitation Last Admin: 12/22/18 03:26 Dose: 5 mg Haloperidol Lactate (Haldol) 5 mg IM Q6 PRN PRN Reason: severe agitation Last Admin: 12/21/18 12:47 Dose: 5 mg Hydroxyzine HCl (Atarax) 50 mg PO QID PRN PRN Reason: Anxiety Last Admin: 12/20/18 15:29 Dose: 50 mg Ibuprofen (Motrin Tab) 600 mg PO Q6 PRN PRN Reason: Pain, moderate (4-7) Lactulose (Enulose) 20 gm PO TID [facility] Last Admin: 12/23/18 17:21 Dose: 20 gm Loperamide HCl (Imodium) 2 mg PO Q8 PRN PRN Reason: Diarrhea Lorazepam (Ativan) 1 mg PO Q4H PRN PRN Reason: Symptoms of alcohol withdrawl Last Admin: 12/22/18 03:26 Dose: 1 mg Magnesium Oxide (Mag-Ox) 400 mg PO TID [facility] Last Admin: 12/23/18 17:20 Dose: 400 mg Multivitamins (Hexavitamin) 1 tab PO DAILY [facility] Last Admin: 12/23/18 09:32 Dose: 1 tab Ondansetron HCl (Zofran Tab) 4 mg PO Q8 PRN PRN Reason: Nausea/Vomiting Thiamine HCl (Vitamin B1 Tab) 100 mg PO DAILY [facility] Last Admin: 12/23/18 09:33 Dose: 100 mg Trazodone HCl (Desyrel) 100 mg PO HS PRN PRN Reason: Insomnia Last Admin: 12/18/18 21:01 Dose: 100 mg Vitamin A (Vitamin A & D Oint Ud Foilpak) 1 ea TOP BID [facility] Last Admin: 12/23/18 17:21 Dose: 1 ea - Labs Labs: 12/23/18 08:05 12/23/18 08:05 Attending/Attestation - Attestation I have personally seen and examined this patient.: Yes I have fully participated in the care of the patient.: Yes I have reviewed all pertinent clinical information, including history, physical exam and plan: Yes Notes (Text): 12/23/18 17:28 This is a late entry Care of this patient was gone over in detail with resident Dr. Vera. Marcio Cates D.O."
[2018-12-23 09:05] LABS: BASO % 0.5 % (0.0-2.0); EOS # 0.2 K/uL (0.0-0.7); EOS % 4.9 % (0.0-4.0); HEMOGLOBIN 12.5 g/dL (12.0-18.0); LYMPH # 0.8 K/uL (1.0-4.3); LYMPH % 24.2 % (20.0-40.0); MEAN CELL VOLUME 93.9 fL (80.0-94.0); MEAN CORPUSCULAR HEMOGLOBIN 30.4 pg (27.0-31.0); MEAN CORPUSCULAR HGB CONC 32.4 g/dL (33.0-37.0); MEAN PLATELET VOLUME 9.2 fL (7.2-11.7); MONO # 0.5 K/uL (0.0-0.8); MONO % 16.6 % (0.0-10.0); NEUT # 1.7 K/uL (1.8-7.0); NEUT % 53.8 % (50.0-75.0); RBC 4.12 Mil/uL (4.40-5.90); RED CELL DISTRIBUTION WIDTH 18.7 % (11.5-14.5); WHITE BLOOD COUNT 3.2 K/uL (4.8-10.8)
[2018-12-23] MEDS: Multiple Vitamins Tab PO SCH (09:32)
[2018-12-23] MEDS: Vitamins A & D Oint UD Foilpak TOP SCH ×2 (09:33→17:21)
[2018-12-23] MEDS: Magnesium Oxide 400 mg Tab UD PO SCH ×3 (09:33→17:20)
[2018-12-23 09:35] LABS: ALB/GLOB RATIO 0.7 (1.0-2.1); ALBUMIN 2.6 g/dL (3.5-5.0); ALT/SGPT 54 U/L (21-72); AST/SGOT 121 U/L (17-59); BLOOD UREA NITROGEN 16 mg/dL (9-20); CALCIUM 8.1 mg/dl (8.6-10.4); GFR NON-AFRICAN AMERICAN > 60
--- NOTE | 2018-12-23 13:25 | CP.PCM.PN ---
<Adiel Vera - Last Filed: 12/23/18 14:07> Subjective - Date & Time of Evaluation Date of Evaluation: 12/23/18 Time of Evaluation: 11:00 - Subjective Subjective: Patient seen and examined at bedside sleeping. Patient was awakened with verbal stimuli. ROS difficult to obtain due to mechanical aphasia. With head nods he denied any fever, chills, chest pain, or SOB. He has had bowel movements. He denies any urinary symptoms. Objective - Vital Signs/Intake and Output Vital Signs (last 24 hours): Temp Pulse Resp BP Pulse Ox 98.0 F 86 18 127/78 98 12/23/18 09:00 12/23/18 09:00 12/23/18 09:00 12/23/18 09:00 12/23/18 09:00 - Medications Medications: Current Medications Al Hydrox/Mg Hydrox/Simethicone (Maalox 30 Ml) 30 ml PO TID PRN PRN Reason: Indigestion / Heartburn Clonidine HCl (Catapres) 0.1 mg PO Q4H PRN PRN Reason: Symptoms of alcohol withdrawl Dicyclomine HCl (Bentyl) 10 mg PO Q6 PRN PRN Reason: Muscle spasm Folic Acid (Folic Acid) 1 mg PO DAILY [facility] Last Admin: 12/23/18 09:33 Dose: 1 mg Haloperidol (Haldol) 5 mg PO Q4 PRN PRN Reason: Agitation Last Admin: 12/22/18 03:26 Dose: 5 mg Haloperidol Lactate (Haldol) 5 mg IM Q6 PRN PRN Reason: severe agitation Last Admin: 12/21/18 12:47 Dose: 5 mg Hydroxyzine HCl (Atarax) 50 mg PO QID PRN PRN Reason: Anxiety Last Admin: 12/20/18 15:29 Dose: 50 mg Ibuprofen (Motrin Tab) 600 mg PO Q6 PRN PRN Reason: Pain, moderate (4-7) Lactulose (Enulose) 20 gm PO TID [facility] Loperamide HCl (Imodium) 2 mg PO Q8 PRN PRN Reason: Diarrhea Lorazepam (Ativan) 1 mg PO Q4H PRN PRN Reason: Symptoms of alcohol withdrawl Last Admin: 12/22/18 03:26 Dose: 1 mg Magnesium Oxide (Mag-Ox) 400 mg PO TID [facility] Last Admin: 12/23/18 09:33 Dose: 400 mg Multivitamins (Hexavitamin) 1 tab PO DAILY [facility] Last Admin: 12/23/18 09:32 Dose: 1 tab Ondansetron HCl (Zofran Tab) 4 mg PO Q8 PRN PRN Reason: Nausea/Vomiting Thiamine HCl (Vitamin B1 Tab) 100 mg PO DAILY [facility] Last Admin: 12/23/18 09:33 Dose: 100 mg Trazodone HCl (Desyrel) 100 mg PO HS PRN PRN Reason: Insomnia Last Admin: 12/18/18 21:01 Dose: 100 mg Vitamin A (Vitamin A & D Oint Ud Foilpak) 1 ea TOP BID [facility] Last Admin: 12/23/18 09:33 Dose: 1 ea - Labs Labs: 12/23/18 08:05 12/23/18 08:05 - Additional Findings Additional findings: - Head Exam Head Exam: ATRAUMATIC, NORMAL INSPECTION, NORMOCEPHALIC - Eye Exam Eye Exam: EOMI. absent: Scleral icterus - ENT Exam ENT Exam: Mucous Membranes Moist - Respiratory Exam Respiratory Exam: Clear to Ausculation Bilateral. absent: Accessory Muscle Use - Cardiovascular Exam Cardiovascular Exam: RRR, +S1, +S2 - GI/Abdominal Exam GI & Abdominal Exam: Soft. Tender (RUQ), Voluntary Guarding. absent: Rebound - Extremities Exam Extremities Exam: Normal Inspection. absent: Pedal Edema - Neurological Exam Neurological Exam: Alert, Awake - Psychiatric Exam Psychiatric exam: Flat Affect - Skin Skin Exam: Dry, Normal Color, Warm Assessment and Plan - Assessment and Plan (Free Text) Assessment: 53 year old male with a past medical history of hepatitis C, cholelithiasis, liver cirrhosis, nephrolithiaisis, and hiatal hernia presents in etoh witdrawal from detox unit. Plan: Etoh withdrawal [id number]-[id number] on admission Management as per Psych Medications: Ativan 1mg po q4 prn Clonidine .1mg PO Q4 PRN Haloperidol 5mg PO Q4 PRN | IM Q6H PRN <----Recommend that this be used as a last Option for agitation Thiamine 100mg PO Daily Multivitamin 1 tab po DAILY [facility] Folic acid 1mg PO DAILY [facility] Continue 1:1 Advanced Liver cirrhosis Secondary to HCV, chronic EtOH use -Abdominal CT without PO or IV contrast: 1. Bilateral nonobstructing renal calculi. 2. Evidence of advanced cirrhosis with a nodular and cirrhotic liver as well as prominent spleen and upper abdominal varices. Clinical correlation. 3. Small hiatal hernia. 4. Cholelithiasis. Correlation with right upper quadrant ultrasound maybe helpful if clinically indicated. 5. Few thickened and mildly distended loops of small bowel seen within the upper and mid abdomen which may represent an enteritis. Underdistended and or mildly thickened left hemicolon. 6. Degenerative changes in the spine. Bridging sclerosis of the bilateral SI joints. Prominent heterotopic bone seen emanating from the posterior left iliac bone extending to the level of the gluteal muscles. Clinical correlation. Productive change at the ischial tuberosities bilaterally. 7. Additional findings as above. -Pt with Tbili elevation as below -Hyperammonemia as below -Thrombocytopenia as below Insomnia Managed by psychiatry/detox -Continue Trazadone 100mg PO HS PRN Nausea Managed by psychiatry/detox -Continue Zofran 4mg PO Q8PRN -Continue Maalox 30ml PO TID PRN Agitation Managed by psychiatry/detox -Continue Haloperidol 5mg IM Q6 PRN <----Recommend that this be used as a last Option for agitation, as this may put patient in a stupor -Diazepam 5ng Q8 PRN -Atarax 50mg PO QID PRN Heroin abuse -Continue Subutex 6mg SL DAILY [facility] Thrombocytopenia (Improving) Likely 2/2 to EtoH Bone Marrow Suppression and Liver Cirrhosis. -stable, no signs of bleeding -2/2 to alcohol abuse and hx of hepatitis C -continue to monitor Cocaine Abuse -Avoid Beta Blockers. Elevated ammonia levels -Head CT shows no acute intracranial pathology -Ammonia increased from 39-->64-->50-->76 -lactulose 20mg PO TID Elevated T Bili (Improving) -stable -2/2 to cirrhosis Hypomagnesemia -Mg Oxide 400mg PO TID PPX GI ppx not indicated at this time. DISPO: SHERIDAN, RN both informed on how to properly hydrate pt with electrolyte solution. As noted before, Dr Cates along with the help of SHERIDAN were able to sit patient in bed and patient was able to drink about 250cc electrolyte solution. We continue to recommend oral medication to be crushed and to be given with electrolyte solution. Medicine to continue to follow at detox unit. Patient discussed with Attending Adiel Vera PGY-2 <Marcio Cates - Last Filed: 12/23/18 17:27> Objective - Vital Signs/Intake and Output Vital Signs (last 24 hours): Temp Pulse Resp BP Pulse Ox 97.8 F 83 18 115/67 95 12/23/18 16:46 12/23/18 16:46 12/23/18 16:46 12/23/18 16:46 12/23/18 16:46 - Medications Medications: Current Medications Al Hydrox/Mg Hydrox/Simethicone (Maalox 30 Ml) 30 ml PO TID PRN PRN Reason: Indigestion / Heartburn Clonidine HCl (Catapres) 0.1 mg PO Q4H PRN PRN Reason: Symptoms of alcohol withdrawl Dicyclomine HCl (Bentyl) 10 mg PO Q6 PRN PRN Reason: Muscle spasm Folic Acid (Folic Acid) 1 mg PO DAILY [facility] Last Admin: 12/23/18 09:33 Dose: 1 mg Haloperidol (Haldol) 5 mg PO Q4 PRN PRN Reason: Agitation Last Admin: 12/22/18 03:26 Dose: 5 mg Haloperidol Lactate (Haldol) 5 mg IM Q6 PRN PRN Reason: severe agitation Last Admin: 12/21/18 12:47 Dose: 5 mg Hydroxyzine HCl (Atarax) 50 mg PO QID PRN PRN Reason: Anxiety Last Admin: 12/20/18 15:29 Dose: 50 mg Ibuprofen (Motrin Tab) 600 mg PO Q6 PRN PRN Reason: Pain, moderate (4-7) Lactulose (Enulose) 20 gm PO TID [facility] Last Admin: 12/23/18 17:21 Dose: 20 gm Loperamide HCl (Imodium) 2 mg PO Q8 PRN PRN Reason: Diarrhea Lorazepam (Ativan) 1 mg PO Q4H PRN PRN Reason: Symptoms of alcohol withdrawl Last Admin: 12/22/18 03:26 Dose: 1 mg Magnesium Oxide (Mag-Ox) 400 mg PO TID [facility] Last Admin: 12/23/18 17:20 Dose: 400 mg Multivitamins (Hexavitamin) 1 tab PO DAILY [facility] Last Admin: 12/23/18 09:32 Dose: 1 tab Ondansetron HCl (Zofran Tab) 4 mg PO Q8 PRN PRN Reason: Nausea/Vomiting Thiamine HCl (Vitamin B1 Tab) 100 mg PO DAILY [facility] Last Admin: 12/23/18 09:33 Dose: 100 mg Trazodone HCl (Desyrel) 100 mg PO HS PRN PRN Reason: Insomnia Last Admin: 12/18/18 21:01 Dose: 100 mg Vitamin A (Vitamin A & D Oint Ud Foilpak) 1 ea TOP BID [facility] Last Admin: 12/23/18 17:21 Dose: 1 ea - Labs Labs: 12/23/18 08:05 12/23/18 08:05 Attending/Attestation - Attestation I have personally seen and examined this patient.: Yes I have fully participated in the care of the patient.: Yes I have reviewed all pertinent clinical information, including history, physical exam and plan: Yes Notes (Text): 12/23/18 17:23 Patient was see and examined at 10:30 AM Care of this patient was gone over with resident Dr. Vera Patient was alseep at the time of my exam but was now easily arousable: Stated that he was at a friends house and stated that "he wanted to talk with his casket coverer" Explained to him where he was, provided him with day, date, and time and explained why he was in the detox unit He then fell back asleep Spoke with Nurse Gibson: He is having bowel movements and urinating He is eating by himself I explained again the need to continue to provide assistance with drinking 250 ml of fluid/Sport Drink every 6 hours Explained that should there be agitation then should try Atarax first and NOT Ativan or Haldol (both last administered 12/22/18) as this will regress patient back into his stupor and we will lose the progress that the patient has made as he is now becoming more alert/awake Further management as per Psychiatry Marcio Cates D.O.
--- NOTE | 2018-12-23 19:10 | PCM.PYCHPN ---
Psychiatric Progress Note - Psychiatric Progress Note Patient seen today, length of contact: 17 min Patient Chief Complaint: "OK" Problems Identified/Issues Discussed: The pt is seen, chart reviewed, case discussed with staff. Still delirious But better than previous days Still on 1:1 and taking lactulose. Ammonia is high again He mumbles less but is disoriented. Support given Medication Change: Yes (Benzos stopped) Medical Record Reviewed: Yes Mental Status Examination - Cognitive Function Memory: Impaired Attention: Poor Concentration: Poor Association: Loose Fund of Knowledge: Poor - Mood Mood: Anxious - Affect Affect: Blunted - Speech Speech: Slurred - Formal Thought Process Formal Thought Process: Loosening of associations - Suicidal Ideation Suicidal Ideation: No - Homicidal Ideation Homicidal Ideation: No Goal/Treatment Plan - Goal/Treatment Plan Need for Continued Stay: Discharge may exacerbated symptoms, Severe functional impairment Progress Toward Problem(s) and Goals/Treatment Plan: Taper with lorazepam and buprenorphine (the latter is ending) Doses adjusted again Lactulose for hyperammonia Medical consult and labs Gabapentin for augmentation As needed medications All risks, benefits and alternatives of the meds discussed, and the pt agreed and understood. Attend groups and activities Supportive therapy and psychoeducation LA for abstinence CBT for relapse prevention Encourage MAT Refer to rehab or IOP, and self-help groups Teach healthy lifestyle methods, i.e. diet, exercise, meditation Smoking cessation with LA Nicotine patch if needed
--- NOTE | 2018-12-23 19:10 | PCM.PYCHPN ---
Psychiatric Progress Note - Psychiatric Progress Note Patient seen today, length of contact: 17 min Patient Chief Complaint: No c/c Seen as a follow up again Problems Identified/Issues Discussed: The pt is seen, chart reviewed, case discussed with staff. Support and orientation given Pt is improving slowly and needs more time, still has ongoing symptoms and still confused Medicine is on board help appreciated. Ammonia high, couldn't take lactulose as ordered Medication Change: Yes (detox changes daily) Medical Record Reviewed: Yes Mental Status Examination - Cognitive Function Memory: Impaired Attention: Poor Concentration: Poor Association: Loose Fund of Knowledge: Poor - Mood Mood: Anxious - Affect Affect: Blunted - Speech Speech: Slurred - Formal Thought Process Formal Thought Process: Loosening of associations - Suicidal Ideation Suicidal Ideation: No - Homicidal Ideation Homicidal Ideation: No Goal/Treatment Plan - Goal/Treatment Plan Need for Continued Stay: Discharge may exacerbated symptoms, Severe functional impairment Progress Toward Problem(s) and Goals/Treatment Plan: No more ativan - confused, delirious Lactulose for hyperammonia Medical consult and labs
[2018-12-24] MEDS: Vitamins A & D Oint UD Foilpak TOP SCH ×2 (10:11→18:00)
[2018-12-24] MEDS: Multiple Vitamins Tab PO SCH (10:11)
[2018-12-24] MEDS: Magnesium Oxide 400 mg Tab UD PO SCH ×3 (10:11→18:00)
--- NOTE | 2018-12-24 12:01 | CP.PCM.PN ---
"<Laure Merida V - Last Filed: 12/25/18 00:07> Objective - Vital Signs/Intake and Output Vital Signs (last 24 hours): Temp Pulse Resp BP Pulse Ox 98.9 F 86 19 122/76 98 12/24/18 20:02 12/24/18 20:02 12/24/18 20:02 12/24/18 20:02 12/24/18 20:02 - Medications Medications: Current Medications Al Hydrox/Mg Hydrox/Simethicone (Maalox 30 Ml) 30 ml PO TID PRN PRN Reason: Indigestion / Heartburn Clonidine HCl (Catapres) 0.1 mg PO Q4H PRN PRN Reason: Symptoms of alcohol withdrawl Dicyclomine HCl (Bentyl) 10 mg PO Q6 PRN PRN Reason: Muscle spasm Folic Acid (Folic Acid) 1 mg PO DAILY [facility] Last Admin: 12/24/18 10:12 Dose: 1 mg Haloperidol (Haldol) 5 mg PO Q4 PRN PRN Reason: Agitation Last Admin: 12/24/18 22:06 Dose: 5 mg Haloperidol Lactate (Haldol) 5 mg IM Q6 PRN PRN Reason: severe agitation Last Admin: 12/21/18 12:47 Dose: 5 mg Hydroxyzine HCl (Atarax) 50 mg PO QID PRN PRN Reason: Anxiety Last Admin: 12/23/18 23:35 Dose: 50 mg Lactulose (Enulose) 20 gm PO QID [facility] Last Admin: 12/24/18 22:06 Dose: 20 gm Loperamide HCl (Imodium) 2 mg PO Q8 PRN PRN Reason: Diarrhea Lorazepam (Ativan) 1 mg PO Q4H PRN PRN Reason: Symptoms of alcohol withdrawl Last Admin: 12/24/18 22:06 Dose: 1 mg Magnesium Oxide (Mag-Ox) 400 mg PO TID [facility] Last Admin: 12/24/18 18:00 Dose: 400 mg Multivitamins (Hexavitamin) 1 tab PO DAILY [facility] Last Admin: 12/24/18 10:11 Dose: 1 tab Ondansetron HCl (Zofran Tab) 4 mg PO Q8 PRN PRN Reason: Nausea/Vomiting Thiamine HCl (Vitamin B1 Tab) 100 mg PO DAILY [facility] Last Admin: 12/24/18 10:11 Dose: 100 mg Trazodone HCl (Desyrel) 100 mg PO HS PRN PRN Reason: Insomnia Last Admin: 12/23/18 23:35 Dose: 100 mg Vitamin A (Vitamin A & D Oint Ud Foilpak) 1 ea TOP BID [facility] Last Admin: 12/24/18 18:00 Dose: 1 ea - Labs Labs: 12/24/18 14:08 12/24/18 14:08 Attending/Attestation - Attestation I have personally seen and examined this patient.: Yes I have fully participated in the care of the patient.: Yes I have reviewed all pertinent clinical information, including history, physical exam and plan: Yes Notes (Text): Medicine on consult Patient admitted to detox for undergoing withdrawal from both opiates as well as alcohol Medicine on consult for suspicion of DTs per psych Patient blood work was collected late today. Patient this is my first time with the patient. Patient noted for speech impediment. No noted tremors on my exam. Patient is awake alert and oriented x2. Patient is disoriented. Patient trying to get out of bed reemphasize this remains in bed Ammonia is still was elevated but 71 discussed with nursing staff patient is not having bowel movement lactulose increased to 4 times daily Patient noted on prior abdominal ultrasound from about some years ago for cirrhosis, ascites likely alcoholic liver disease as well as hepatitis C which has been untreated. Patient when he is better oriented should follow-up with the liver specialist liver suspicion. Patient should follow-up with a GI or liver specialist in terms of hepatitis C treatment. CAT scan was completed this admission noted for nodular findings consistent with cirrhosis. Patient's lactulose was increased from 3 times daily to 4 times daily. Monitor patient's mental status. Follow-up blood work as well as ammonia level. 1. Hepatic encephalopathy CT scan noted for cirrhosis. As well as has had a prior abdominal ultrasound noted for cirrhosis Ammonia level is elevated Lactulose was increased to 4 times daily In terms of hepatitis C which I believe is untreated will need to follow-up with either GI liver specialist treatment for hepatitis C the patient states Given that there is a strong risk for hepatocellular carcinoma Patient is a persistent alcohol limits his ability for any liver transplant Monitor ammonia 2. Alcohol abuse and alcohol withdrawal Management per psych 3. Hepatitis C Recommend outpatient follow-up with either GI or liver specialists Disposition: Increase lactulose. Monitor ammonia. Monitor mental status in light of lactulose increase <Kyriakides,Yoseph - Last Filed: 12/25/18 07:51> Subjective - Date & Time of Evaluation Date of Evaluation: 12/24/18 Time of Evaluation: 07:48 - Subjective Subjective: HOSPITALIST SERVICE Pt s/e at bedside, incoherent however responds to most questions and is able to follow commands, 12 point ROS unavailable. Pt denies CP SOB FC NV, as per nursing Pt had a BM this morning Objective - Vital Signs/Intake and Output Vital Signs (last 24 hours): Temp Pulse Resp BP Pulse Ox 98.3 F 97 H 18 117/77 97 12/23/18 20:47 12/23/18 20:47 12/23/18 20:47 12/23/18 20:47 12/23/18 20:47 - Medications Medications: Current Medications Al Hydrox/Mg Hydrox/Simethicone (Maalox 30 Ml) 30 ml PO TID PRN PRN Reason: Indigestion / Heartburn Clonidine HCl (Catapres) 0.1 mg PO Q4H PRN PRN Reason: Symptoms of alcohol withdrawl Dicyclomine HCl (Bentyl) 10 mg PO Q6 PRN PRN Reason: Muscle spasm Folic Acid (Folic Acid) 1 mg PO DAILY [facility] Last Admin: 12/24/18 10:12 Dose: 1 mg Haloperidol (Haldol) 5 mg PO Q4 PRN PRN Reason: Agitation Last Admin: 12/22/18 03:26 Dose: 5 mg Haloperidol Lactate (Haldol) 5 mg IM Q6 PRN PRN Reason: severe agitation Last Admin: 12/21/18 12:47 Dose: 5 mg Hydroxyzine HCl (Atarax) 50 mg PO QID PRN PRN Reason: Anxiety Last Admin: 12/23/18 23:35 Dose: 50 mg Lactulose (Enulose) 20 gm PO QID [facility] Loperamide HCl (Imodium) 2 mg PO Q8 PRN PRN Reason: Diarrhea Lorazepam (Ativan) 1 mg PO Q4H PRN PRN Reason: Symptoms of alcohol withdrawl Last Admin: 12/22/18 03:26 Dose: 1 mg Magnesium Oxide (Mag-Ox) 400 mg PO TID [facility] Last Admin: 12/24/18 10:11 Dose: 400 mg Multivitamins (Hexavitamin) 1 tab PO DAILY [facility] Last Admin: 12/24/18 10:11 Dose: 1 tab Ondansetron HCl (Zofran Tab) 4 mg PO Q8 PRN PRN Reason: Nausea/Vomiting Thiamine HCl (Vitamin B1 Tab) 100 mg PO DAILY [facility] Last Admin: 12/24/18 10:11 Dose: 100 mg Trazodone HCl (Desyrel) 100 mg PO HS PRN PRN Reason: Insomnia Last Admin: 12/23/18 23:35 Dose: 100 mg Vitamin A (Vitamin A & D Oint Ud Foilpak) 1 ea TOP BID [facility] Last Admin: 12/24/18 10:11 Dose: 1 ea - Labs Labs: 12/23/18 08:05 12/23/18 08:05 - Additional Findings Additional findings: - Head Exam Head Exam: ATRAUMATIC, NORMAL INSPECTION, NORMOCEPHALIC - Eye Exam Eye Exam: EOMI. absent: Scleral icterus - ENT Exam ENT Exam: Mucous Membranes Moist - Respiratory Exam Respiratory Exam: Clear to Ausculation Bilateral. absent: Accessory Muscle Use - Cardiovascular Exam Cardiovascular Exam: RRR, +S1, +S2 - GI/Abdominal Exam GI & Abdominal Exam: Soft. Tender (RUQ), Voluntary Guarding. absent: Rebound - Extremities Exam Extremities Exam: Normal Inspection. absent: Pedal Edema - Neurological Exam Neurological Exam: Alert, Awake - Psychiatric Exam Psychiatric exam: Flat Affect - Skin Skin Exam: Dry, Normal Color, Warm Assessment and Plan - Assessment and Plan (Free Text) Assessment: 53 year old male with a past medical history of hepatitis C, cholelithiasis, liver cirrhosis, nephrolithiaisis, and hiatal hernia presents in etoh witdrawal from detox unit. Plan: Etoh withdrawal [id number] on admission Management as per Psych Medications: Ativan 1mg po q4 prn Clonidine .1mg PO Q4 PRN Haloperidol 5mg PO Q4 PRN | IM Q6H PRN <----Recommend that this be used as a last Option for agitation Thiamine 100mg PO Daily Multivitamin 1 tab po DAILY [facility] Folic acid 1mg PO DAILY [facility] Continue 1:1 Advanced Liver cirrhosis Secondary to HCV, chronic EtOH use -Abdominal CT without PO or IV contrast: 1. Bilateral nonobstructing renal calculi. 2. Evidence of advanced cirrhosis with a nodular and cirrhotic liver as well as prominent spleen and upper abdominal varices. Clinical correlation. 3. Small hiatal hernia. 4. Cholelithiasis. Correlation with right upper quadrant ultrasound maybe helpful if clinically indicated. 5. Few thickened and mildly distended loops of small bowel seen within the upper and mid abdomen which may represent an enteritis. Underdistended and or mildly thickened left hemicolon. 6. Degenerative changes in the spine. Bridging sclerosis of the bilateral SI joints. Prominent heterotopic bone seen emanating from the posterior left iliac bone extending to the level of the gluteal muscles. Clinical correlation. Productive change at the ischial tuberosities bilaterally. 7. Additional findings as above. -Pt with Tbili elevation as below -Hyperammonemia as below -Thrombocytopenia as below Insomnia Managed by psychiatry/detox -Continue Trazadone 100mg PO HS PRN Nausea Managed by psychiatry/detox -Continue Zofran 4mg PO Q8PRN -Continue Maalox 30ml PO TID PRN Agitation Managed by psychiatry/detox -Continue Haloperidol 5mg IM Q6 PRN <----Recommend that this be used as a last Option for agitation, as this may put patient in a stupor -Diazepam 5ng Q8 PRN -Atarax 50mg PO QID PRN Heroin abuse -Continue Subutex 6mg SL DAILY [facility] Thrombocytopenia (Improving) Likely 2/2 to EtoH Bone Marrow Suppression and Liver Cirrhosis. -stable, no signs of bleeding -2/2 to alcohol abuse and hx of hepatitis C -continue to monitor Cocaine Abuse -Avoid Beta Blockers. Elevated ammonia levels -Head CT shows no acute intracranial pathology -Ammonia increased from 39-->64-->50-->76 -lactulose 20mg PO QID Elevated T Bili (Improving) -stable -2/2 to cirrhosis Hypomagnesemia -Mg Oxide 400mg PO TID PPX GI ppx not indicated at this time. DISPO: SHERIDAN, RN both informed on how to properly hydrate pt with electrolyte solution. As noted before, Dr Cates along with the help of SHERIDAN were able to sit patient in bed and patient was able to drink about 250cc electrolyte solution. We continue to recommend oral medication to be crushed and to be given with electrolyte solution. Lactulose increased to QID Medicine to continue to follow at detox unit. Patient discussed with Attending"
--- NOTE | 2018-12-24 13:52 | PCM.PYCHPN ---
Psychiatric Progress Note - Psychiatric Progress Note Patient seen today, length of contact: 15 min Patient Chief Complaint: "I'm fine" Problems Identified/Issues Discussed: The pt is seen, chart reviewed, case discussed with staff. Less delirious but not enough to have a safe discharge He is oriented to "hospital" and "doctor" only Still unsteady, mumbles when he speaks and most of the time doesn't make full sense. He is likely to be ready tomorrow Medication Change: Yes (Benzos stopped) Medical Record Reviewed: Yes Mental Status Examination - Cognitive Function Memory: Impaired Attention: Poor Concentration: Poor Association: Loose Fund of Knowledge: Poor - Mood Mood: Anxious - Affect Affect: Blunted - Speech Speech: Slurred - Formal Thought Process Formal Thought Process: Loosening of associations - Suicidal Ideation Suicidal Ideation: No - Homicidal Ideation Homicidal Ideation: No Goal/Treatment Plan - Goal/Treatment Plan Need for Continued Stay: Discharge may exacerbated symptoms, Severe functional impairment Progress Toward Problem(s) and Goals/Treatment Plan: Taper with lorazepam and buprenorphine (the latter is ending) Doses adjusted again Lactulose for hyperammonia Medical consult and labs Gabapentin for augmentation As needed medications All risks, benefits and alternatives of the meds discussed, and the pt agreed and understood. Attend groups and activities Supportive therapy and psychoeducation [place] for abstinence CBT for relapse prevention Encourage MAT Refer to rehab or IOP, and self-help groups Teach healthy lifestyle methods, i.e. diet, exercise, meditation Smoking cessation with [place] Nicotine patch if needed
[2018-12-24 14:24] LABS: EOS # 0.1 K/uL (0.0-0.7); EOS % 4.1 % (0.0-4.0); HEMOGLOBIN 13.7 g/dL (12.0-18.0); LYMPH # 0.8 K/uL (1.0-4.3); LYMPH % 25.4 % (20.0-40.0); MEAN CELL VOLUME 93.7 fL (80.0-94.0); MEAN CORPUSCULAR HEMOGLOBIN 30.1 pg (27.0-31.0); MEAN CORPUSCULAR HGB CONC 32.1 g/dL (33.0-37.0); MEAN PLATELET VOLUME 8.8 fL (7.2-11.7); MONO # 0.6 K/uL (0.0-0.8); MONO % 17.1 % (0.0-10.0); NEUT # 1.7 K/uL (1.8-7.0); NEUT % 52.4 % (50.0-75.0); NRBC % 0.1 % (0.0-2.0); RBC 4.56 Mil/uL (4.40-5.90); RED CELL DISTRIBUTION WIDTH 18.1 % (11.5-14.5); WHITE BLOOD COUNT 3.3 K/uL (4.8-10.8)
[2018-12-24 15:04] LABS: ALB/GLOB RATIO 0.8 (1.0-2.1); ALBUMIN 3.2 g/dL (3.5-5.0); ALT/SGPT 67 U/L (21-72); AST/SGOT 153 U/L (17-59); BLOOD UREA NITROGEN 15 mg/dL (9-20); CALCIUM 8.5 mg/dl (8.6-10.4); GFR NON-AFRICAN AMERICAN > 60
--- NOTE | 2018-12-25 08:59 | PCM.PYCHDC ---
Mental Status Examination - Mental Status Examination Orientation: Person, Place, Situation, Time Mood: Anxious Affect: Constricted Speech: Appropriate Attention: WNL Concentration: WNL Association: WNL Fund of Knowledge: WNL Formal Thought Process: No Impairment Suicidal Ideation: No Current Homicidal Ideation?: No Discharge Summary - Discharge Note Reason for Hospitalization: Alcohol detox Opioid detox Laboratory Data: Abnormal Lab Results 12/24/18 12/24/18 12/24/18 14:08 14:08 14:08 WBC 3.3 L RBC 4.56 Hgb 13.7 Hct 42.7 MCV 93.7 MCH 30.1 MCHC 32.1 L RDW 18.1 H Plt Count 68 L MPV 8.8 Neut % (Auto) 52.4 Lymph % (Auto) 25.4 [place] % (Auto) 17.1 H Eos % (Auto) 4.1 H Baso % (Auto) 1.0 Neut # (Auto) 1.7 L Lymph # (Auto) 0.8 L [place] # (Auto) 0.6 Eos # (Auto) 0.1 Baso # (Auto) 0.0 Sodium 137 Potassium 3.9 Chloride 104 Carbon Dioxide 27 Anion Gap 11 BUN 15 Creatinine 0.8 Est GFR ( Amer) > 60 Est GFR (Non-Af Amer) > 60 Random Glucose 137 H Calcium 8.5 L Phosphorus 3.7 Magnesium 1.7 Total Bilirubin 3.8 H AST 153 H D ALT 67 Alkaline Phosphatase 100 Ammonia 71 H Total Protein 7.0 Albumin 3.2 L D Globulin 3.8 Albumin/Globulin Ratio 0.8 L Consultations:: List each consultation separately and include: 1. Reason for request. 2. Findings. 3. Follow-up Summary of Hospital Course include:: 1. Description of specific treatment plan utilized for patients during their course of treatmen. 2. Summarize the time- course for resolution of acute symptoms and/or regressed behaviors. 3. Describe issues identified and worked on during hospitalization. 4. Describe medication utilized. 5. Describe medical problems identified and treated. 6. Reassessment of suicide risk Summary of Hospital Course: On admission: This is a 53 y/o LM< , has 5 children, lives with his son in [place] but visiting [place], on disability He admits to using intranasal heroin (5 bags) x 20 yrs, alcohol (2 lt) since age 15 and crack cocaine He smokes 1 ppd cigarette Used suboxone for 5 years. He was in detox 3 times but never went to rehab He admits to feeling depressed and has been admitted to psych many times He also admits to having attempted suicide 10-15 times, last one being 3 years ago. He was in [facility] most recently No medical issues except for metal in his jaw Hospital course: The pt was admitted and started on treatment with psychotherapy, support, psychoeducation and medications. VT and CBT used. The pt attended groups and activities, as well as milieu therapy. All the risks and benefits of medications are discussed and the patient understood and agreed. The pt improved with the treatments provided. After care discussed with the patient. - Final Diagnosis (DSM 5) Condition upon Discharge: FAIR DSM 5: Alcohol withdrawal Alcohol use d/o - severe Opioid withdrawal Opioid use d/o - severe Cocaine use d/o - severe Major depression, recurrent, moderate Disposition: HOME/ ROUTINE Follow-up Treatment Plan: Continue below medications after discharge. Follow after care plan as discussed. Use relapse prevention skills Return to ER or call 911 if suicidal, homicidal or symptoms relapse. Stay away from stress, alcohol and drugs. See primary doctor regularly and get labs. Taper with lorazepam and buprenorphine (the latter is ending) Doses adjusted again Lactulose for hyperammonia Medical consult and labs Gabapentin for augmentation As needed medications All risks, benefits and alternatives of the meds discussed, and the pt agreed and understood. Attend groups and activities Supportive therapy and psychoeducation [place] for abstinence CBT for relapse prevention Encourage MAT Refer to rehab or IOP, and self-help groups Teach healthy lifestyle methods, i.e. diet, exercise, meditation Smoking cessation with [place] Nicotine patch if needed Prescriptions/Medication Reconciliation: Magnesium Oxide [Mag-Ox] 400 mg PO BID #60 tab Multivitamins [Hexavitamin] 1 tab PO DAILY #30 tab traZODone [Desyrel] 100 mg PO HS PRN #30 tab PRN Reason: Insomnia
[2018-12-25 09:08] LABS: BASO % 0.7 % (0.0-2.0); EOS # 0.1 K/uL (0.0-0.7); EOS % 4.4 % (0.0-4.0); LYMPH # 0.8 K/uL (1.0-4.3); MEAN CELL VOLUME 93.6 fL (80.0-94.0); MEAN CORPUSCULAR HEMOGLOBIN 30.2 pg (27.0-31.0); MEAN CORPUSCULAR HGB CONC 32.2 g/dL (33.0-37.0); MEAN PLATELET VOLUME 8.6 fL (7.2-11.7); MONO # 0.5 K/uL (0.0-0.8); MONO % 15.1 % (0.0-10.0); NEUT # 1.8 K/uL (1.8-7.0); NEUT % 54.8 % (50.0-75.0); NRBC % 0.1 % (0.0-2.0); RBC 4.63 Mil/uL (4.40-5.90); RED CELL DISTRIBUTION WIDTH 17.6 % (11.5-14.5); WHITE BLOOD COUNT 3.3 K/uL (4.8-10.8)
[2018-12-25 09:24] LABS: ALB/GLOB RATIO 0.8 (1.0-2.1); ALBUMIN 3.3 g/dL (3.5-5.0); ALT/SGPT 74 U/L (21-72); AST/SGOT 144 U/L (17-59); BLOOD UREA NITROGEN 14 mg/dL (9-20); CALCIUM 8.8 mg/dl (8.6-10.4); GFR NON-AFRICAN AMERICAN > 60
[2018-12-25] MEDS: Magnesium Oxide 400 mg Tab UD PO SCH (10:50)
[2018-12-25] MEDS: Multiple Vitamins Tab PO SCH (10:50)
[2018-12-25] MEDS: Vitamins A & D Oint UD Foilpak TOP SCH (10:55)
[2018-12-25 11:44] VITALS: BP 122/78; PULSE 91; RESP 18; TEMP 97.9; O2SAT 94
--- NOTE | 2018-12-26 16:13 | CP.PCM.PN ---
"<Tye Seguraophe - Last Filed: 12/26/18 16:14> Subjective - Date & Time of Evaluation Date of Evaluation: 12/25/18 Time of Evaluation: 07:00 - Subjective Subjective: Pt s/e at bedside, improved, denies cp sob fc nv. dc home today Objective - Vital Signs/Intake and Output Vital Signs (last 24 hours): Temp Pulse Resp BP Pulse Ox 97.9 F 91 H 18 122/78 94 L 12/25/18 08:42 12/25/18 08:42 12/25/18 08:42 12/25/18 08:42 12/25/18 08:42 - Labs Labs: 12/25/18 08:56 12/25/18 08:56 - Additional Findings Additional findings: - Head Exam Head Exam: ATRAUMATIC, NORMAL INSPECTION, NORMOCEPHALIC - Eye Exam Eye Exam: EOMI. absent: Scleral icterus - ENT Exam ENT Exam: Mucous Membranes Moist - Respiratory Exam Respiratory Exam: Clear to Ausculation Bilateral. absent: Accessory Muscle Use - Cardiovascular Exam Cardiovascular Exam: RRR, +S1, +S2 - GI/Abdominal Exam GI & Abdominal Exam: Soft. Tender (RUQ), Voluntary Guarding. absent: Rebound - Extremities Exam Extremities Exam: Normal Inspection. absent: Pedal Edema - Neurological Exam Neurological Exam: Alert, Awake - Psychiatric Exam Psychiatric exam: Flat Affect - Skin Skin Exam: Dry, Normal Color, Warm Assessment and Plan - Assessment and Plan (Free Text) Assessment: 53 year old male with a past medical history of hepatitis C, cholelithiasis, liver cirrhosis, nephrolithiaisis, and hiatal hernia presents in etoh witdrawal from detox unit. Plan: Etoh withdrawal [id number]-[id number] on admission Management as per Psych Medications: Ativan 1mg po q4 prn Clonidine .1mg PO Q4 PRN Haloperidol 5mg PO Q4 PRN | IM Q6H PRN <----Recommend that this be used as a last Option for agitation Thiamine 100mg PO Daily Multivitamin 1 tab po DAILY [facility] Folic acid 1mg PO DAILY [facility] Continue 1:1 Advanced Liver cirrhosis Secondary to HCV, chronic EtOH use -Abdominal CT without PO or IV contrast: 1. Bilateral nonobstructing renal calculi. 2. Evidence of advanced cirrhosis with a nodular and cirrhotic liver as well as prominent spleen and upper abdominal varices. Clinical correlation. 3. Small hiatal hernia. 4. Cholelithiasis. Correlation with right upper quadrant ultrasound maybe helpful if clinically indicated. 5. Few thickened and mildly distended loops of small bowel seen within the upper and mid abdomen which may represent an enteritis. Underdistended and or mildly thickened left hemicolon. 6. Degenerative changes in the spine. Bridging sclerosis of the bilateral SI joints. Prominent heterotopic bone seen emanating from the posterior left iliac bone extending to the level of the gluteal muscles. Clinical correlation. Productive change at the ischial tuberosities bilaterally. 7. Additional findings as above. -Pt with Tbili elevation as below -Hyperammonemia as below -Thrombocytopenia as below Insomnia Managed by psychiatry/detox -Continue Trazadone 100mg PO HS PRN Nausea Managed by psychiatry/detox -Continue Zofran 4mg PO Q8PRN -Continue Maalox 30ml PO TID PRN Agitation Managed by psychiatry/detox -Continue Haloperidol 5mg IM Q6 PRN <----Recommend that this be used as a last Option for agitation, as this may put patient in a stupor -Diazepam 5ng Q8 PRN -Atarax 50mg PO QID PRN Heroin abuse -Continue Subutex 6mg SL DAILY [facility] Thrombocytopenia (Improving) Likely 2/2 to EtoH Bone Marrow Suppression and Liver Cirrhosis. -stable, no signs of bleeding -2/2 to alcohol abuse and hx of hepatitis C -continue to monitor Cocaine Abuse -Avoid Beta Blockers. Elevated ammonia levels -Head CT shows no acute intracranial pathology -Ammonia increased from 39-->64-->50-->76 -lactulose 20mg PO QID Elevated T Bili (Improving) -stable -2/2 to cirrhosis Hypomagnesemia -Mg Oxide 400mg PO TID PPX GI ppx not indicated at this time. DISPO: signing off, dc home today, recommending OTC lactulose QID <Miles Mccarty - Last Filed: 12/26/18 18:52> Objective - Vital Signs/Intake and Output Vital Signs (last 24 hours): Temp Pulse Resp BP Pulse Ox 97.9 F 91 H 18 122/78 94 L 12/25/18 08:42 12/25/18 08:42 12/25/18 08:42 12/25/18 08:42 12/25/18 08:42 - Labs Labs: 12/25/18 08:56 12/25/18 08:56 Attending/Attestation - Attestation I have personally seen and examined this patient.: Yes I have fully participated in the care of the patient.: Yes I have reviewed all pertinent clinical information, including history, physical exam and plan: Yes"
== END 2018-12-25 12:57 | disposition home or self-care (01) | DRG 744 ==
LOC: C.ER 18:48 → C.7D 12-17 00:11
PROC: HZ2ZZZZ Detoxification Services for Substance Abuse Treatment (ICD-10-PCS; principal; 2018-12-17)
PROC: HZ59ZZZ Individual Psychotherapy for Substance Abuse Treatment, Supportive (ICD-10-PCS; 2018-12-17)
PROC: GZ3ZZZZ Medication Management (ICD-10-PCS; 2018-12-17)
PROC: HZ46ZZZ Group Counseling for Substance Abuse Treatment, Psychoeducation (ICD-10-PCS; 2018-12-17)
DX: F10.230 Alcohol dependence with withdrawal, uncomplicated (principal); F11.23 Opioid dependence with withdrawal; F33.1 Major depressive disorder, recurrent, moderate; F14.90 Cocaine use, unspecified, uncomplicated; K70.30 Alcoholic cirrhosis of liver without ascites; B19.20 Unspecified viral hepatitis C without hepatic coma; N18.9 Chronic kidney disease, unspecified; F20.9 Schizophrenia, unspecified; J44.9 Chronic obstructive pulmonary disease, unspecified; F31.9 Bipolar disorder, unspecified; R47.01 Aphasia; F17.210 Nicotine dependence, cigarettes, uncomplicated; K70.40 Alcoholic hepatic failure without coma; Y90.6 Blood alcohol level of 120-199 mg/100 ml; Z91.5 Personal history of self-harm; Z87.442 Personal history of urinary calculi

== ENCOUNTER 2018-12-26 04:17 | Emergency (ER) | payer SELFPAY ==
[2018-12-26 04:17] VITALS: BMI 27.0
--- NOTE | 2018-12-26 05:01 | C.PDOC ---
History Of Present Illness Patient presents to the ER with acute ETOH intoxication. Denies suicidal ideation, homicidal ideation, or other complaints. Time Seen by Provider: 12/26/18 05:00 Chief Complaint (Nursing): Substance Abuse History Per: Patient History/Exam Limitations: no limitations Onset/Duration Of Symptoms: Hrs Current Symptoms Are (Timing): Still Present Suicide/Self Injury Attempted (Context): None Modifying Factor(s): Alcohol Associated Symptoms: denies: Suicidal Thoughts, Other (Homicidal ideation) Involuntary Hold By: None Recent travel outside of the [place]: No Past Medical History Reviewed: Historical Data, Nursing Documentation, Vital Signs Vital Signs: Last Vital Signs Temp 98.6 F 12/26/18 04:23 Pulse 83 12/26/18 04:23 Resp 20 12/26/18 04:23 BP 129/87 12/26/18 04:23 Pulse Ox 96 12/26/18 04:23 - Medical History PMH: Anxiety, Asthma, Bipolar Disorder, COPD, Depression, Fractures, Hepatitis (+ Hep C), Kidney Stones, Chronic Kidney Disease, Schizophrenia Denies: Diabetes, HIV, HTN, Seizures, [facility]ually [facility] DETOXIFICATION SERVICES FOR SUBSTANCE ABUSE TREATMENT (01/25/16) GROUP PSYCHOTHERAPY (09/21/17) INDIV PSYCHOTHERAPY FOR SUBSTANCE ABUSE TREATMENT, SUPPORT (09/21/17) INDIV PSYCHOTHERAPY FOR SUBSTANCE ABUSE, COGNITIV BEHAVIORAL (09/21/17) INDIV PSYCHOTHERAPY FOR SUBSTANCE ABUSE, MOTIVATION ENHANCE (09/21/17) INDIVIDUAL PSYCHOTHERAPY, COGNITIVE-BEHAVIORAL (07/25/17) INJECT/INFUSE NEC (02/20/14) INSPECTION OF LARYNX, ENDO (03/23/17) Family History: States: Unknown Family Hx - Social History Hx Tobacco Use: Yes Hx Alcohol Use: Yes Hx Substance Use: Yes - Immunization History Hx Tetanus Toxoid Vaccination: No Hx Influenza Vaccination: No Hx Pneumococcal Vaccination: No Review Of Systems Constitutional: Negative for: Fever, Chills Cardiovascular: Negative for: Chest Pain, Palpitations Respiratory: Negative for: Cough, Shortness of Breath Gastrointestinal: Negative for: Nausea, Vomiting Neurological: Negative for: Weakness, Numbness Psych: Negative for: Suicidal ideation, Other (Homicidal ideation) Physical Exam - Physical Exam Appears: Non-toxic, Other (ETOH on breath, no sign of injury) Skin: Warm, Dry Head: Normacephalic Oral Mucosa: Moist Chest: Symmetrical, No Tenderness Cardiovascular: Rhythm Regular Respiratory: No Rales, No Rhonchi, No Wheezing Gastrointestinal/Abdominal: Soft, No Tenderness Extremity: Other (Syndactyly of left hand) Pulses: Left Radial: Normal, Right Radial: Normal Neurological/Psych: Oriented x3 ED Course And Treatment O2 Sat by Pulse Oximetry: 96 (room air) Pulse Ox Interpretation: Normal Disposition Counseled Patient/Family Regarding: Studies Performed, Diagnosis, Need For Followup - Disposition Disposition Time: 05:01 Condition: FAIR Forms: [facility] (Tanzanian) - Clinical Impression Clinical Impression: Alcohol abuse with intoxication - Scribe Statement The provider has reviewed the documentation as recorded by the Scribe Farhat Hurtado All medical record entries made by the Scribe were at my direction and personally dictated by me. I have reviewed the chart and agree that the record accurately reflects my personal performance of the history, physical exam, medical decision making, and the department course for this patient. I have also personally directed, reviewed, and agree with the discharge instructions and disposition. Physician Patient Turnover Patient Signed Over To: Emmanuel Chaudhari Handoff Comments: pending sobriety
[2018-12-26 07:52] VITALS: BP 113/65; PULSE 89; RESP 20; TEMP 98.2; O2SAT 96
== END 2018-12-26 07:52 | disposition home or self-care (01) ==
LOC: C.ER 04:17
DX: F10.129 Alcohol abuse with intoxication, unspecified (principal)